=== PATIENT | female | born 2000 | race Caucasian/White ===

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

== ENCOUNTER 2021-05-17 11:43 | Emergency (ER) | payer OTHER ==
[2021-05-17] MEDS ORDERED: METOCLOPRAMIDE 5 MG/ML 2 ML VIAL IVP STA (11:55)
[2021-05-17] MEDS ORDERED: SODIUM CHLORIDE 0.9% 1,000 ML IV STA (11:55)
--- NOTE | 2021-05-17 12:21 | ED ---
General Adult HPI - General Chief complaint: Nausea/Vomiting/Diarrhea Stated complaint: 8 Wks Preg/Nausea/Vomiting Time Seen by Provider: 05/17/21 11:54 Source: patient Mode of arrival: wheelchair Limitations: no limitations - History of Present Illness Initial comments: Dictation was produced using [employer] dictation software. please excuse any gram matical, word or spelling errors. Chief Complaint: 20-year-old feel presents to the emergency department for nausea vomiting and poor oral intake History of Present Illness: Patient is an 20-year-old female she has no significant past medical history. Patient reports that she is 8 weeks . She is a complaining of nausea vomiting and poor appetite for the last several days. She saw her primary care doctor who prescribed her with Zofran. Patient has not established care with retail experience specialist yet. She is taking prenatals and antinausea medications currently. Patient is scheduled for an ultrasound in 3 days for her initial ultrasound per she does not have point with OB until she is 15 weeks. She does report some mild intermittent cramping to the pelvic area. She does not have any cramping or pelvic complaints at this time. The ROS documented in this emergency department record has been reviewed and confirmed by me. Those systems with pertinent positive or negative responses have been documented in the HPI. All other systems are other negative and/or noncontributory. PHYSICAL EXAM: General Impression: Alert and oriented x3, not in acute distress HEENT: Normocephalic atraumatic, extra-ocular movements intact, pupils equal and reactive to light bilaterally, dry mucous membranes. Cardiovascular: Heart regular rate and rhythm Chest: Able to complete full sentences, no retractions, no tachypnea Abdomen: abdomen soft, non-tender, non-distended, no organomegaly Musculoskeletal: Pulses present and equal in all extremities, no peripheral edema Motor: no focal deficits noted Neurological: CN II-XII grossly intact, no focal motor or sensory deficits noted Skin: Intact with no visualized rashes Psych: Normal affect and mood ED course: 20-year-old female presents with nausea and vomiting in . Vital signs upon arrival are within acceptable limits. Laboratory evaluation obtained. CBC, metabolic panel is unremarkable. Urinalysis is negative. Patient does not have any objective evidence of dehydration. OB ultrasound was obtained showing single live intrauterine measuring 6 weeks 3 days. 2:13 PM patient reevaluated bedside found to be significant improved. She has no complaints at this time. Patient is agreeable to discharge. Return precautions discussed. Given prescription for by mouth Reglan. - Related Data Home Medications Medication Instructions Recorded Confirmed Ondansetron HCl [Zofran] 4 mg PO Q8H PRN 05/17/21 05/17/21 Zwl-Rjvd-Yffni Acid 1 cap PO DAILY 05/17/21 05/17/21 [-U Capsule (formulary)] Previous Rx's Medication Instructions Recorded Metoclopramide [Reglan] 10 mg PO TID PRN #20 tab 05/17/21 Allergies Allergy/AdvReac Type Severity Reaction Status Date / Time No Known Allergies Allergy Verified 05/17/21 14:01 Review of Systems ROS Statement: Those systems with pertinent positive or pertinent negative responses have been documented in the HPI. ROS Other: All systems not noted in ROS Statement are negative. Past Medical History Past Medical History: No Reported History History of Any Multi-Drug Resistant Organisms: None Reported Past Surgical History: No Surgical Hx Reported Past Psychological History: No Psychological Hx Reported Smoking Status: Former smoker Past Alcohol Use History: None Reported Past Drug Use History: None Reported General Exam Limitations: no limitations Course Vital Signs 05/17/21 14:08 Temperature 98.9 F Pulse Rate 64 Respiratory 18 Rate Blood Pressure 104/80 O2 Sat by Pulse 100 Oximetry Medical Decision Making - Lab Data Result diagrams: 05/17/21 12:11 05/17/21 12:11 Lab Results 05/17/21 05/17/21 05/17/21 Range/Units 12:11 12:11 12:21 WBC 7.2 (4.0-11.0) k/uL RBC 4.57 (3.80-5.40) m/uL Hgb 14.5 (11.4-16.0) gm/dL Hct 44.1 (34.0-46.0) % MCV 96.4 (80.0-100.0) fL MCH 31.8 (25.0-35.0) pg MCHC 33.0 (31.0-37.0) g/dL RDW 11.5 (11.5-15.5) % Plt Count 259 (150-450) k/uL MPV 7.3 Neutrophils % 68 % Lymphocytes % 26 % Monocytes % 4 % Eosinophils % 1 % Basophils % 0 % Neutrophils # 4.9 (1.3-7.7) k/uL Lymphocytes # 1.9 (1.0-4.8) k/uL Monocytes # 0.3 (0-1.0) k/uL Eosinophils # 0.0 (0-0.7) k/uL Basophils # 0.0 (0-0.2) k/uL Sodium 138 (137-145) mmol/L Potassium 4.1 (3.5-5.1) mmol/L Chloride 105 (98-107) mmol/L Carbon Dioxide 25 (22-30) mmol/L Anion Gap 8 mmol/L BUN 12 (7-17) mg/dL Creatinine 0.54 (0.52-1.04) mg/dL Est GFR (CKD-EPI)AfAm >90 (>60 ml/min/1.73 sqM) Est GFR (CKD-EPI)NonAf >90 (>60 ml/min/1.73 sqM) Glucose 85 (74-99) mg/dL Calcium 9.5 (8.4-10.2) mg/dL Magnesium 1.9 (1.6-2.3) mg/dL Urine Color Yellow Urine Appearance Cloudy H (Clear) Urine pH 7.0 (5.0-8.0) Ur Specific [place] 1.014 (1.001-1.035) Urine Protein Negative (Negative) Urine Glucose (UA) Negative (Negative) Urine Ketones Negative (Negative) Urine Blood Negative (Negative) Urine Nitrite Negative (Negative) Urine Bilirubin Negative (Negative) Urine Urobilinogen <2.0 (<2.0) mg/dL Ur Leukocyte Esterase Trace H (Negative) Urine RBC 1 (0-5) /hpf Urine WBC 1 (0-5) /hpf Ur Squamous Epith Cells 8 H (0-4) /hpf Urine Bacteria Rare H (None) /hpf Hyaline Casts 1 (0-2) /lpf Disposition Clinical Impression: Nausea/vomiting in Disposition: HOME SELF-CARE Condition: Good Instructions (If sedation given, give patient instructions): Acute Nausea and Vomiting (ED) Prescriptions: Metoclopramide [Reglan] 10 mg PO TID PRN #20 tab PRN Reason: Nausea Is patient prescribed a controlled substance at d/c from ED?: No Referrals: Nonstaff,Physician [REFERRING] - 1-2 days
[2021-05-17 12:25] LABS: Basophils % (A) 0 %; Eosinophils % (A) 1 %; HCT 44.1 % (34.0-46.0); HGB 14.5 gm/dL (11.4-16.0); Lymphocytes # (A) 1.9 k/uL (1.0-4.8); Lymphocytes % (A) 26 %; MCH 31.8 pg (25.0-35.0); MCV 96.4 fL (80.0-100.0); Mean Platelet Volume 7.3; Monocytes # (A) 0.3 k/uL (0-1.0); Monocytes % (A) 4 %; Neutrophils # (A) 4.9 k/uL (1.3-7.7); Neutrophils % (A) 68 %; Platelet Count 259 k/uL (150-450); RBC 4.57 m/uL (3.80-5.40); RDW 11.5 % (11.5-15.5); WBC 7.2 k/uL (4.0-11.0)
[2021-05-17 12:46] LABS: African American GFR (CKD) >90 (>60 ml/min/1.73 sqM); Anion Gap 8 mmol/L; Blood Urea Nitrogen 12 mg/dL (7-17); Calcium 9.5 mg/dL (8.4-10.2); Carbon Dioxide 25 mmol/L (22-30); Chloride 105 mmol/L (98-107); Glucose 85 mg/dL (74-99); Magnesium 1.9 mg/dL (1.6-2.3); Non-African American GFR(CKD) >90 (>60 ml/min/1.73 sqM); Potassium 4.1 mmol/L (3.5-5.1); Sodium 138 mmol/L (137-145)
[2021-05-17 12:52] LABS: Appearance,Urine Cloudy (Clear); Bacteria,Urine Rare /hpf; Bilirubin,Urine Negative (Negative); Blood,Urine Negative (Negative); Color,Urine Yellow; Glucose,Urine (UA) Negative (Negative); Hyaline Casts,Urine 1 /lpf (0-2); Ketones,Urine Negative (Negative); Leukocyte Esterase,Urine Trace (Negative); Nitrite,Urine Negative (Negative); Protein,Urine Negative (Negative); RBC,Urine 1 /hpf (0-5); Specific Gravity,Urine 1.014 (1.001-1.035); Squamous Epithelial Cell,Urine 8 /hpf (0-4); Urobilinogen,Urine <2.0 mg/dL (<2.0); WBC,Urine 1 /hpf (0-5)
--- NOTE | 2021-05-17 13:59 | US ---
EXAMINATION TYPE: Transabdominal DATE OF EXAM: 05/17/2021 1:40 PM COMPARISON: NONE CLINICAL HISTORY: pelvic pain. Nausea and vomiting. EXAM PERFORMED: Transvaginal (TV) and Transabdominal (TA) EXAM MEASUREMENTS: GESTATIONAL AGE / DATING Physician Established: Not yet established Dates by LMP: (7 weeks/2 days) EDC: 01/01/2022 Dates by First Scan: No previous this is first scan Dates by Current Scan for: ( 6 weeks/3 days) EDC: 01/07/2022 MATERNAL ANATOMY Uterus: 11.7 x 5.4 x 6.3 cm Right Ovary: 2.8 x 1.8 x 1.6 cm Left Ovary: 3.4 x 2.0 x 1.9 cm Post CDS / Adnexa: wnl Presence of free fluid: no Presence of corpus luteal cyst: no Presence of subchorionic bleed: no GESTATION / SURVEY CRL: 0.61 cm (6 weeks/3 days) Yolk Sac (normal less than 6mm): 2 mm Heart Rate: 143 bpm Rhythm: Normal IUP: Viable IUP Beta HcG (if available): Not available at this time IMPRESSION: Single live intrauterine measuring 6 weeks and 3 days gestational age by sonographic criter ia.
[2021-05-17 14:08] VITALS: BP 104/80; PULSE 64; RESP 18; TEMP 98.9
== END 2021-05-17 14:22 | disposition home or self-care (01) ==
LOC: EC 11:43
DX: O21.9 Vomiting of pregnancy, unspecified (principal); Z3A.08 8 weeks gestation of pregnancy
CPT/HCPCS: 36415; 76801; 76817; 80048; 81001; 83735; 85025; 96361; 96374; 99284

== ENCOUNTER 2021-05-18 11:31 | Emergency (ER) | payer OTHER ==
[2021-05-18 11:36] VITALS: TEMP 98
[2021-05-18] MEDS ORDERED: FAMOTIDINE 20 MG/2 ML VIAL IV STA (12:27)
[2021-05-18] MEDS ORDERED: DEXTROSE 5%-0.9% NACL 1,000 ML IV SCH (12:30)
[2021-05-18] MEDS ORDERED: ONDANSETRON 4 MG/2 ML VIAL IVP STA (12:33)
[2021-05-18 13:06] LABS: Basophils % (A) 1 %; Eosinophils % (A) 1 %; HCT 38.5 % (34.0-46.0); HGB 13.1 gm/dL (11.4-16.0); Lymphocytes # (A) 1.9 k/uL (1.0-4.8); Lymphocytes % (A) 27 %; MCH 32.7 pg (25.0-35.0); MCV 96.2 fL (80.0-100.0); Mean Platelet Volume 7.3; Monocytes # (A) 0.3 k/uL (0-1.0); Monocytes % (A) 4 %; Neutrophils # (A) 4.6 k/uL (1.3-7.7); Neutrophils % (A) 67 %; Platelet Count 198 k/uL (150-450); RDW 11.6 % (11.5-15.5); WBC 6.9 k/uL (4.0-11.0)
[2021-05-18 13:14] LABS: ALT 24 U/L (4-34); AST 24 U/L (14-36); African American GFR (CKD) >90 (>60 ml/min/1.73 sqM); Albumin 3.9 g/dL (3.5-5.0); Alkaline Phosphatase 69 U/L (38-126); Anion Gap 6 mmol/L; Blood Urea Nitrogen 12 mg/dL (7-17); Carbon Dioxide 25 mmol/L (22-30); Chloride 106 mmol/L (98-107); Glucose 79 mg/dL (74-99); Magnesium 1.8 mg/dL (1.6-2.3); Non-African American GFR(CKD) >90 (>60 ml/min/1.73 sqM); Sodium 137 mmol/L (137-145); Total Bilirubin 0.2 mg/dL (0.2-1.3); Total Protein 6.5 g/dL (6.3-8.2)
[2021-05-18 13:23] LABS: Amorphous Sediment,Urine Rare /hpf; Appearance,Urine Cloudy (Clear); Bacteria,Urine Rare /hpf; Bilirubin,Urine Negative (Negative); Blood,Urine Negative (Negative); Color,Urine Yellow; Glucose,Urine (UA) Negative (Negative); Ketones,Urine Negative (Negative); Leukocyte Esterase,Urine Trace (Negative); Nitrite,Urine Negative (Negative); PH, Urine 7.5 (5.0-8.0); Protein,Urine Negative (Negative); RBC,Urine 1 /hpf (0-5); Squamous Epithelial Cell,Urine 8 /hpf (0-4); Urobilinogen,Urine <2.0 mg/dL (<2.0); WBC,Urine 3 /hpf (0-5)
[2021-05-18 13:55] LABS: HCG,Quantitative Serum 68149.3 mIU/mL
--- NOTE | 2021-05-18 15:46 | ED ---
General Adult HPI - General Chief complaint: Nausea/Vomiting/Diarrhea Stated complaint: Vomiting Time Seen by Provider: 05/18/21 12:15 Source: patient, RN notes reviewed, old records reviewed Mode of arrival: ambulatory Limitations: no limitations - History of Present Illness Initial comments: Patient is a 20-year-old female with past medical history remarkable for current of about 6 weeks who presents emergency Department complaining of marisol sea and vomiting . Patient was previously evaluated and showed a definitive IUP at approximate 6 weeks in gestation. She states that she has been unable to follow up with MINE ENGINEERING SUPERVISOR yet. She has had persistent nonbilious nonbloody emesis over the last 2 days with nausea. She has not been tolerant revealing tape. She denies any chest pain, shortness breath. He endorses some mild epigastric abdominal pain that is worse with emesis. Denies any dysuria, hematuria. She denies any headaches, fevers, chills. She has no sick contacts. She has any vaginal discharge or bleeding. She has no other acute complaints at this time. Patient presents for her nausea and vomiting . - Related Data Home Medications Medication Instructions Recorded Confirmed Zym-Zplh-Opieu Acid 1 cap PO DAILY 05/17/21 05/18/21 [-U Capsule (formulary)] Previous Rx's Medication Instructions Recorded Metoclopramide [Reglan] 10 mg PO TID PRN #20 tab 05/17/21 Ondansetron Odt [Zofran Odt] 4 mg PO Q8HR PRN #6 tab 05/18/21 Allergies Allergy/AdvReac Type Severity Reaction Status Date / Time No Known Allergies Allergy Verified 05/18/21 13:24 Review of Systems ROS Statement: Those systems with pertinent positive or pertinent negative responses have been documented in the HPI. Review of Systems: CONST: Denies fever EYES: Denies blurry vision ENT: Denies nasal congestion C/V: Denies Chest pain RESP: Denies shortness of breath GI: Endorses mild abdominal pain, nausea, vomiting : Denies dysuria SKIN: Denies rash. MSK: Denies joint pain. NEURO: Denies headache ROS Other: All systems not noted in ROS Statement are negative. Past Medical History Past Medical History: No Reported History History of Any Multi-Drug Resistant Organisms: None Reported Past Surgical History: No Surgical Hx Reported Past Psychological History: No Psychological Hx Reported Smoking Status: Former smoker Past Alcohol Use History: None Reported Past Drug Use History: None Reported General Exam - General Exam Comments Initial Comments: General: Appears in no acute distress. HEAD: Normal with no signs of head trauma. EYES: EOMI. Conjunctiva normal. ENT: Hearing grossly intact, normal oropharynx. Mildly dry mucous membranes. RESPIRATORY: Clear breath sounds bilaterally. No wheezes, rales, or rhonchi. C/V: Regular rate and rhythm. S1 and S2 auscultated, no edema, peripheral pulses 2+ and intact throughout ABD: Abdomen soft, nondistended. She is mildly tender to palpation epigastric region. There is no guarding. There are no peritoneal signs. EXT: Normal range of motion, no obvious deformity SKIN: No rashes or lesions observed on exposed skin. NEURO: Alert and oriented 4. No focal deficits. Limitations: no limitations Course Vital Signs 05/18/21 05/18/21 11:34 15:53 Temperature 98 F Pulse Rate 60 73 Respiratory 18 16 Rate Blood Pressure 124/84 123/79 O2 Sat by Pulse 99 99 Oximetry Medical Decision Making - Medical Decision Making Based on the patient's presentation and physical exam, she appears to be have nausea and vomiting in the setting of . Therefore we will obtain basic laboratory studies. She will be symptomatically treated with D5 normal saline fluid bolus as well as IV famotidine and Zofran. She was in agreement this p azar. Laboratory studies are remarkable for normal electrolytes. Patient's quantitative beta hCG is 68,000. Urinalysis was a contaminated catch, as there are 8 squamous epithelial cells and no nitrites. She has no urinary symptoms at this time. On reevaluation, patient is taught and by mouth intake. She is feeling improved. I do believe it is safer to be discharged home at this time with maki se follow-up with MINE ENGINEERING SUPERVISOR. She was in agreement this plan. I will provide the patient with a prescription for Zofran ODT.. I instructed the patient to follow up with their PCP in the next 3 days. Patient previously has a prescription for Reglan which I advise she does not take if she is taking Zofran. I advised her to take her vitamins as well. She states she already has a prescription for vitamins. Patient has an outpatient MINE ENGINEERING SUPERVISOR who she follows up with.. I explained that the patient should return to the emergency department if they experience any worsening symptoms. Strict return precautions were discussed with the patient. The patient expressed understanding of these instructions. I answered all questions that the patient had. The patient was discharged home in good condition with their prescriptions and follow up information. - Lab Data Result diagrams: 05/18/21 12:51 05/18/21 12:51 Lab Results 05/18/21 05/18/21 05/18/21 Range/Units 12:51 12:51 12:51 WBC 6.9 (4.0-11.0) k/uL RBC 4.00 (3.80-5.40) m/uL Hgb 13.1 (11.4-16.0) gm/dL Hct 38.5 (34.0-46.0) % MCV 96.2 (80.0-100.0) fL MCH 32.7 (25.0-35.0) pg MCHC 34.0 (31.0-37.0) g/dL RDW 11.6 (11.5-15.5) % Plt Count 198 (150-450) k/uL MPV 7.3 Neutrophils % 67 % Lymphocytes % 27 % Monocytes % 4 % Eosinophils % 1 % Basophils % 1 % Neutrophils # 4.6 (1.3-7.7) k/uL Lymphocytes # 1.9 (1.0-4.8) k/uL Monocytes # 0.3 (0-1.0) k/uL Eosinophils # 0.0 (0-0.7) k/uL Basophils # 0.0 (0-0.2) k/uL Sodium 137 (137-145) mmol/L Potassium 4.0 (3.5-5.1) mmol/L Chloride 106 (98-107) mmol/L Carbon Dioxide 25 (22-30) mmol/L Anion Gap 6 mmol/L BUN 12 (7-17) mg/dL Creatinine 0.44 L (0.52-1.04) mg/dL Est GFR (CKD-EPI)AfAm >90 (>60 ml/min/1.73 sqM) Est GFR (CKD-EPI)NonAf >90 (>60 ml/min/1.73 sqM) Glucose 79 (74-99) mg/dL Calcium 9.0 (8.4-10.2) mg/dL Magnesium 1.8 (1.6-2.3) mg/dL Total Bilirubin 0.2 (0.2-1.3) mg/dL AST 24 (14-36) U/L ALT 24 (4-34) U/L Alkaline Phosphatase 69 (38-126) U/L Total Protein 6.5 (6.3-8.2) g/dL Albumin 3.9 (3.5-5.0) g/dL HCG, Quant 42796.3 mIU/mL Urine Color Yellow Urine Appearance Cloudy H (Clear) Urine pH 7.5 (5.0-8.0) Ur Specific [place] 1.020 (1.001-1.035) Urine Protein Negative (Negative) Urine Glucose (UA) Negative (Negative) Urine Ketones Negative (Negative) Urine Blood Negative (Negative) Urine Nitrite Negative (Negative) Urine Bilirubin Negative (Negative) Urine Urobilinogen <2.0 (<2.0) mg/dL Ur Leukocyte Esterase Trace H (Negative) Urine RBC 1 (0-5) /hpf Urine WBC 3 (0-5) /hpf Ur Squamous Epith Cells 8 H (0-4) /hpf Amorphous Sediment Rare H (None) /hpf Urine Bacteria Rare H (None) /hpf Disposition Clinical Impression: Nausea and vomiting during Disposition: HOME SELF-CARE Condition: Good Instructions (If sedation given, give patient instructions): Acute Nausea and Vomiting (ED) Prescriptions: Ondansetron Odt [Zofran Odt] 4 mg PO Q8HR PRN #6 tab PRN Reason: Nausea Is patient prescribed a controlled substance at d/c from ED?: No Referrals: Emily Stephenson DO [Primary Care Provider] - 1-2 days
[2021-05-18 15:53] VITALS: BP 123/79; PULSE 73; RESP 16
== END 2021-05-18 15:53 | disposition home or self-care (01) ==
LOC: EC 11:31
DX: O21.9 Vomiting of pregnancy, unspecified (principal); Z87.891 Personal history of nicotine dependence; Z3A.01 Less than 8 weeks gestation of pregnancy
CPT/HCPCS: 36415; 80053; 83735; 85025; 81001; 84702; 96374; 96375; 96361 ×2; 99283; J2405

== ENCOUNTER 2021-05-21 12:58 | Emergency (ER) | payer OTHER ==
[2021-05-21 13:04] VITALS: BP 117/79; PULSE 80; RESP 16; TEMP 97.6
[2021-05-21] MEDS ORDERED: ONDANSETRON 4 MG/2 ML VIAL IM STA (15:09)
--- NOTE | 2021-05-21 15:11 | ED ---
Nausea/Vomiting/Diarrhea HPI - General Chief complaint: Nausea/Vomiting/Diarrhea Stated complaint: 6Wks Preg/Vomiting/Syncope Time Seen by Provider: 05/21/21 14:34 Source: patient Mode of arrival: wheelchair Limitations: no limitations - History of Present Illness Initial comments: She is a 20-year-old female presenting to the emergency Department for recheck of her nausea and vomiting. Patient is a proximally 6 weeks . This is her third visit in 4-5 days for the same complaints. She has been given scripts for Zofran and Reglan and states she continues to have nausea throughout the day. She tries he takes medication, sometimes at work sometimes it does not. She states she has an appointment with her PROCESSING TECHNICIAN in 2 days. She is requesting a work note to be off until then. She states her nausea is minimal at this time. She denies any abdominal pain, no vaginal bleeding. She denies any fevers or chills. She denies any dizziness or lightheadedness. She has no further complaints at this time. Her vital signs are stable upon arrival. - Related Data Home Medications Medication Instructions Recorded Confirmed Fay-Rmnd-Dqvqi Acid 1 cap PO DAILY 05/17/21 05/21/21 [-U Capsule (formulary)] Previous Rx's Medication Instructions Recorded Metoclopramide [Reglan] 10 mg PO TID PRN #20 tab 05/17/21 Ondansetron Odt [Zofran Odt] 4 mg PO Q8HR PRN #6 tab 05/18/21 Doxylamine/Pyridoxine HCl (B6) 2 each PO HS #20 tablet. 05/21/21 [Leilani Richmond 10-10 mg Tablet] Allergies Allergy/AdvReac Type Severity Reaction Status Date / Time No Known Allergies Allergy Verified 05/21/21 14:39 Review of Systems ROS Statement: Those systems with pertinent positive or pertinent negative responses have been documented in the HPI. ROS Other: All systems not noted in ROS Statement are negative. Past Medical History Past Medical History: No Reported History History of Any Multi-Drug Resistant Organisms: None Reported Past Surgical History: No Surgical Hx Reported Past Psychological History: No Psychological Hx Reported Smoking Status: Former smoker Past Alcohol Use History: None Reported Past Drug Use History: None Reported General Exam - General Exam Comments Initial Comments: GENERAL: Patient is well-developed and well-nourished. Patient is nontoxic and in no acute distress. HEAD: Atraumatic, normocephalic. EYES: Pupils equal round and reactive to light, extraocular movements intact, sclera anicteric, conjunctiva are normal. Eyelids were unremarkable. ENT: Moist mucous membranes. NECK: Normal range of motion, supple without lymphadenopathy or JVD. LUNGS: Unlabored respirations. Breath sounds clear to auscultation bilaterally and equal. No wheezes rales or rhonchi. HEART: Regular rate and rhythm without murmurs, rubs or gallops. ABDOMEN: Soft, nontender, normoactive bowel sounds. No guarding, no rebound. No masses appreciated. : Deferred MUSCULOSKELETAL: Normal extremities with adequate strength and normal range of motion, no pitting or edema. No clubbing or cyanosis. NEUROLOGICAL: Patient is alert and oriented x 3. SKIN: Warm, Dry, normal turgor, no rashes or lesions noted. Limitations: no limitations Course Vital Signs 05/21/21 13:02 Temperature 97.6 F Pulse Rate 80 Respiratory 16 Rate Blood Pressure 117/79 O2 Sat by Pulse 100 Oximetry Medical Decision Making - Medical Decision Making Patient is a 20-year-old female presenting for a recheck of her nausea and vomiting. She is currently 6 weeks . This is patient's third visit in 4 days for same complaint. She has prescriptions for Zofran and Reglan states they don't always work. At this time her nausea is minimal, no abdominal pain, no vaginal bleeding. She did have an ultrasound 3 days ago which revealed a single live IUP, no further complications. Patient does have an appointment with her PROCESSING TECHNICIAN in 2 days. She is requesting a work note to be off of work until then. I will give her a prescription for Diclegis to try. We'll also give her a shot of Zofran here today. Patient is stable for discharge. Patient is in agreement with this plan of care. Return parameters were discussed with the patient and they verbalized understanding. Case discussed with Dr. Gibbons. Disposition Clinical Impression: Nausea/vomiting in Disposition: HOME SELF-CARE Condition: Stable Instructions (If sedation given, give patient instructions): Nausea and Vomiting in (ED) Additional Instructions: Please return to the Emergency Department if symptoms worsen or any other concerns. Trial of Diclegis for nausea and vomiting. Work note given. Follow-up with your PROCESSING TECHNICIAN as discussed. Prescriptions: Doxylamine/Pyridoxine HCl (B6) [Leilani Richmond 10-10 mg Tablet] 2 each PO HS #20 tablet. Is patient prescribed a controlled substance at d/c from ED?: No Referrals: Emily Stephenson DO [Primary Care Provider] - 1-2 days Time of Disposition: 15:11
== END 2021-05-21 15:37 | disposition home or self-care (01) ==
LOC: EC 12:58
DX: O21.9 Vomiting of pregnancy, unspecified (principal); Z87.891 Personal history of nicotine dependence; Z3A.01 Less than 8 weeks gestation of pregnancy
CPT/HCPCS: 96372; 99284; J2405

== ENCOUNTER 2021-06-28 05:45 | Emergency (ER) | payer OTHER ==
[2021-06-28 05:53] VITALS: TEMP 98.5
[2021-06-28] MEDS ORDERED: MORPHINE SULFATE 4 MG/ML SYRINGE IV STA (06:00)
[2021-06-28] MEDS ORDERED: SODIUM CHLORIDE 0.9% 1,000 ML IV STA (06:00)
[2021-06-28] MEDS ORDERED: ONDANSETRON 4 MG/2 ML VIAL IVP STA (06:11)
[2021-06-28 06:29] LABS: Basophils % (A) 1 %; Eosinophils % (A) 1 %; HCT 38.8 % (34.0-46.0); HGB 13.8 gm/dL (11.4-16.0); Lymphocytes # (A) 0.8 k/uL (1.0-4.8); Lymphocytes % (A) 17 %; MCHC 35.5 g/dL (31.0-37.0); MCV 95.8 fL (80.0-100.0); Mean Platelet Volume 7.1; Monocytes # (A) 0.2 k/uL (0-1.0); Monocytes % (A) 4 %; Neutrophils # (A) 3.5 k/uL (1.3-7.7); Neutrophils % (A) 77 %; Platelet Count 172 k/uL (150-450); Poikilocytosis Slight; RBC 4.05 m/uL (3.80-5.40); RDW 13.5 % (11.5-15.5); WBC 4.6 k/uL (4.0-11.0)
[2021-06-28 06:31] LABS: Appearance,Urine Cloudy (Clear); Bacteria,Urine Occasional /hpf; Bilirubin,Urine Negative (Negative); Blood,Urine Negative (Negative); Color,Urine Yellow; Glucose,Urine (UA) Negative (Negative); Ketones,Urine 2+ (Negative); Leukocyte Esterase,Urine Large (Negative); Mucus,Urine Many /hpf; Nitrite,Urine Negative (Negative); PH, Urine 6.5 (5.0-8.0); Protein,Urine Trace (Negative); RBC,Urine 1 /hpf (0-5); Specific Gravity,Urine 1.027 (1.001-1.035); Squamous Epithelial Cell,Urine 27 /hpf (0-4); WBC,Urine 1 /hpf (0-5)
[2021-06-28 06:40] LABS: ALT 15 U/L (4-34); AST 25 U/L (14-36); African American GFR (CKD) >90 (>60 ml/min/1.73 sqM); Albumin 3.9 g/dL (3.5-5.0); Alkaline Phosphatase 67 U/L (38-126); Amylase 66 U/L (30-110); Anion Gap 9 mmol/L; Blood Urea Nitrogen 9 mg/dL (7-17); Calcium 8.9 mg/dL (8.4-10.2); Carbon Dioxide 21 mmol/L (22-30); Chloride 106 mmol/L (98-107); Glucose 80 mg/dL (74-99); Lipase 70 U/L (23-300); Non-African American GFR(CKD) >90 (>60 ml/min/1.73 sqM); Potassium 3.6 mmol/L (3.5-5.1); Sodium 136 mmol/L (137-145); Total Bilirubin 0.3 mg/dL (0.2-1.3); Total Protein 6.7 g/dL (6.3-8.2)
--- NOTE | 2021-06-28 07:33 | ED ---
General Adult HPI - General Chief complaint: Abdominal Pain Stated complaint: ASHISH,Chest Pain/13 wks Time Seen by Provider: 06/28/21 06:00 Source: patient, family, RN notes reviewed Mode of arrival: ambulatory Limitations: no limitations - History of Present Illness Initial comments: 20-year-old female that presents to emergency department complaining of nausea vomiting and some abdominal pain. She notes that she did have hyperemesis gravidarum previous. Sheapproximate 13 weeks . She notes that she woke up this past night with shortness of breath and chest discomfort. She notes that she went to [facility] UTI and elevated d-dimer. She came here because she was afraid to go home. She was otherwise a well-appearing 20-year-old female in no apparent distress or pain while laying in bed during the exam interview. She notes that she has not had any, case is with her as of yet. 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 She denied any chest pain shortness of breath headache diarrhea constipation fever fatigue while lying in bed. - Related Data Home Medications Medication Instructions Recorded Confirmed [id number] Acid 1 cap PO DAILY 05/17/21 05/21/21 [-U Capsule (formulary)] Previous Rx's Medication Instructions Recorded Metoclopramide [Reglan] 10 mg PO TID PRN #20 tab 05/17/21 Ondansetron Odt [Zofran Odt] 4 mg PO Q8HR PRN #6 tab 05/18/21 Doxylamine/Pyridoxine HCl (B6) 2 each PO HS #20 tablet. 05/21/21 [Leilani Richmond 10-10 mg Tablet] Allergies Allergy/AdvReac Type Severity Reaction Status Date / Time No Known Allergies Allergy Verified 06/28/21 05:53 Review of Systems ROS Statement: Those systems with pertinent positive or pertinent negative responses have been documented in the HPI. ROS Other: All systems not noted in ROS Statement are negative. Past Medical History Past Medical History: No Reported History History of Any Multi-Drug Resistant Organisms: None Reported Past Surgical History: No Surgical Hx Reported Past Psychological History: No Psychological Hx Reported Smoking Status: Former smoker Past Alcohol Use History: None Reported Past Drug Use History: None Reported General Exam Limitations: no limitations General appearance: alert, in no apparent distress Head exam: Present: atraumatic, normocephalic, normal inspection Eye exam: Present: normal appearance, PERRL, EOMI. Absent: scleral icterus, conjunctival injection, periorbital swelling Neck exam: Present: normal inspection Respiratory exam: Present: normal lung sounds bilaterally. Absent: respiratory distress, wheezes, rales, rhonchi, stridor Cardiovascular Exam: Present: regular rate, normal rhythm, normal heart sounds. Absent: systolic murmur, diastolic murmur, rubs, gallop, clicks GI/Abdominal exam: Present: soft, normal bowel sounds. Absent: distended, tenderness, guarding, rebound, rigid Extremities exam: Present: normal inspection, full ROM, normal capillary refill. Absent: tenderness, pedal edema, joint swelling, calf tenderness Neurological exam: Present: alert, oriented X3 Psychiatric exam: Present: normal affect, normal mood Skin exam: Present: warm, dry, intact, normal color. Absent: rash Course Vital Signs 06/28/21 05:50 Temperature 98.5 F Pulse Rate 86 Respiratory 18 Rate Blood Pressure 113/75 O2 Sat by Pulse 99 Oximetry EKG Findings - EKG Comments: EKG Findings:: Ventricular rate 60 bpm, RI interval 136 ms, QRS duration 96 ms, QTC 440 ms, PRT axes 46/75/35. Normal sinus rhythm with sinus arrhythmia, normal ECG. Medical Decision Making - Medical Decision Making 20-year-old female is 13 weeks complaining of nausea vomiting and some chest discomfort. Labs, EKG, bilateral lower extremity ultrasound, ultrasound, 1 L normal saline, 4 mg of Zofran ordered. EKG within normal limits. Labs within normal limits. Urinalysis negative for UTI. Case discussed with Dr. Titus, patient can discharge home. - Lab Data Result diagrams: 06/28/21 06:12 06/28/21 06:12 Lab Results 06/28/21 06/28/21 06/28/21 Range/Units 06:05 06:12 06:12 WBC 4.6 (4.0-11.0) k/uL RBC 4.05 (3.80-5.40) m/uL Hgb 13.8 (11.4-16.0) gm/dL Hct 38.8 (34.0-46.0) % MCV 95.8 (80.0-100.0) fL MCH 34.0 (25.0-35.0) pg MCHC 35.5 (31.0-37.0) g/dL RDW 13.5 (11.5-15.5) % Plt Count 172 (150-450) k/uL MPV 7.1 Neutrophils % 77 % Lymphocytes % 17 % Monocytes % 4 % Eosinophils % 1 % Basophils % 1 % Neutrophils # 3.5 (1.3-7.7) k/uL Lymphocytes # 0.8 L (1.0-4.8) k/uL Monocytes # 0.2 (0-1.0) k/uL Eosinophils # 0.0 (0-0.7) k/uL Basophils # 0.0 (0-0.2) k/uL Poikilocytosis Slight Sodium (137-145) mmol/L Potassium (3.5-5.1) mmol/L Chloride (98-107) mmol/L Carbon Dioxide (22-30) mmol/L Anion Gap mmol/L BUN (7-17) mg/dL Creatinine (0.52-1.04) mg/dL Est GFR (CKD-EPI)AfAm (>60 ml/min/1.73 sqM) Est GFR (CKD-EPI)NonAf (>60 ml/min/1.73 sqM) Glucose (74-99) mg/dL Calcium (8.4-10.2) mg/dL Total Bilirubin (0.2-1.3) mg/dL AST (14-36) U/L ALT (4-34) U/L Alkaline Phosphatase (38-126) U/L Total Protein (6.3-8.2) g/dL Albumin (3.5-5.0) g/dL Amylase (30-110) U/L Lipase (23-300) U/L HCG, Quant mIU/mL Urine Color Yellow Urine Appearance Cloudy H (Clear) Urine pH 6.5 (5.0-8.0) Ur Specific [place] 1.027 (1.001-1.035) Urine Protein Trace H (Negative) Urine Glucose (UA) Negative (Negative) Urine Ketones 2+ H (Negative) Urine Blood Negative (Negative) Urine Nitrite Negative (Negative) Urine Bilirubin Negative (Negative) Urine Urobilinogen 2.0 (<2.0) mg/dL Ur Leukocyte Esterase Large H (Negative) Urine RBC 1 (0-5) /hpf Urine WBC 1 (0-5) /hpf Ur Squamous Epith Cells 27 H (0-4) /hpf Urine Bacteria Occasional H (None) /hpf Urine Mucus Many H (None) /hpf Urine HCG, Qual Detected (Not Detectd) Blood Type Blood Type Recheck Bld Type Recheck Status 06/28/21 06/28/21 Range/Units 06:12 06:12 WBC (4.0-11.0) k/uL RBC (3.80-5.40) m/uL Hgb (11.4-16.0) gm/dL Hct (34.0-46.0) % MCV (80.0-100.0) fL MCH (25.0-35.0) pg MCHC (31.0-37.0) g/dL RDW (11.5-15.5) % Plt Count (150-450) k/uL MPV Neutrophils % % Lymphocytes % % Monocytes % % Eosinophils % % Basophils % % Neutrophils # (1.3-7.7) k/uL Lymphocytes # (1.0-4.8) k/uL Monocytes # (0-1.0) k/uL Eosinophils # (0-0.7) k/uL Basophils # (0-0.2) k/uL Poikilocytosis Sodium 136 L (137-145) mmol/L Potassium 3.6 (3.5-5.1) mmol/L Chloride 106 (98-107) mmol/L Carbon Dioxide 21 L (22-30) mmol/L Anion Gap 9 mmol/L BUN 9 (7-17) mg/dL Creatinine 0.47 L (0.52-1.04) mg/dL Est GFR (CKD-EPI)AfAm >90 (>60 ml/min/1.73 sqM) Est GFR (CKD-EPI)NonAf >90 (>60 ml/min/1.73 sqM) Glucose 80 (74-99) mg/dL Calcium 8.9 (8.4-10.2) mg/dL Total Bilirubin 0.3 (0.2-1.3) mg/dL AST 25 (14-36) U/L ALT 15 (4-34) U/L Alkaline Phosphatase 67 (38-126) U/L Total Protein 6.7 (6.3-8.2) g/dL Albumin 3.9 (3.5-5.0) g/dL Amylase 66 (30-110) U/L Lipase 70 (23-300) U/L HCG, Quant 26849.0 mIU/mL Urine Color Urine Appearance (Clear) Urine pH (5.0-8.0) Ur Specific [place] (1.001-1.035) Urine Protein (Negative) Urine Glucose (UA) (Negative) Urine Ketones (Negative) Urine Blood (Negative) Urine Nitrite (Negative) Urine Bilirubin (Negative) Urine Urobilinogen (<2.0) mg/dL Ur Leukocyte Esterase (Negative) Urine RBC (0-5) /hpf Urine WBC (0-5) /hpf Ur Squamous Epith Cells (0-4) /hpf Urine Bacteria (None) /hpf Urine Mucus (None) /hpf Urine HCG, Qual (Not Detectd) Blood Type O Positive Blood Type Recheck No Previous Record Bld Type Recheck Status ABR ONLY - EKG Data -: EKG Interpreted by Me EKG shows normal: sinus rhythm Rate: normal EKG Comments: Ventricular rate 60 bpm, RI interval 136 ms, QRS duration 96 ms, QTC 440 ms, PRT axes 46/75/35. Normal sinus rhythm with sinus arrhythmia, normal ECG. - Radiology Data Radiology results: report reviewed, image reviewed Bilateral lower extremities ultrasound: Negative for DVT. ultrasound: Single intrauterine 12 weeks 6 days gestation heart rate 161 bpm Disposition Clinical Impression: Abdominal pain, Nausea & vomiting Disposition: HOME SELF-CARE Condition: Stable Instructions (If sedation given, give patient instructions): Abdominal Pain (ED) Additional Instructions: Please return to the Emergency Department if symptoms worsen or any other concerns. Follow-up with primary care in 1-2 days. 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 Plan rest, increase fluids. Is patient prescribed a controlled substance at d/c from ED?: No Referrals: Emily Stephenson DO [Primary Care Provider] - 1-2 days Time of Disposition: 08:08
--- NOTE | 2021-06-28 07:57 | US ---
EXAMINATION TYPE: US venous doppler duplex LE BI DATE OF EXAM: 06/28/2021 7:39 AM COMPARISON: NONE CLINICAL HISTORY: pain. No leg pain or swelling. No redness. Chest pain. 13 weeks . SIDE PERFORMED: Bilateral TECHNIQUE: The lower extremity deep venous system is examined utilizing real time linear array sonog donna with graded compression, doppler sonography and color-flow sonography. VESSELS IMAGED: Common Femoral Vein Deep Femoral Vein Greater Saphenous Vein * Femoral Vein Popliteal Vein Small Saphenous Vein * Proximal Calf Veins (* superficial vessels) Right Leg: Negative for DVT Left Leg: Negative for DVT IMPRESSION: 1. Lower extremity ultrasound negative for deep venous thrombosis
--- NOTE | 2021-06-28 07:58 | US ---
EXAMINATION TYPE: Transabdominal DATE OF EXAM: 06/28/2021 7:38 AM COMPARISON: NONE CLINICAL HISTORY: abdominal pain. Chest pain. No bleeding or cramping. EXAM PERFORMED: Transabdominal (TA) EXAM MEASUREMENTS: GESTATIONAL AGE / DATING Physician Established: (13 weeks/2 days) EDC: 01/01/2022 Dates by Current Scan for: (12 weeks/6 days) EDC: 01/04/2022 MATERNAL ANATOMY Uterus: 10.0 x 8.9 x 7.5 cm Right Ovary: Obscured by bowel gas and uterus Left Ovary: Obscured by bowel gas and uterus Post CDS / Adnexa: no free fluid Presence of free fluid: no Presence of corpus luteal cyst: n/a Presence of subchorionic bleed: no GESTATION / SURVEY CRL: 6.4 cm (12 weeks/6 days) MSD: seen, not measured Heart Rate: 161 bpm Rhythm: Normal IUP: Viable IUP Date of LMP: Unknown, G1 Beta HcG (if available): Not available at this time Single live IUP measuring 12 weeks 6 days. IMPRESSION: 1. Single intrauterine gestation at 12 weeks 6 days gestation. Cardiac activity measures 161 bpm.
[2021-06-28 08:13] VITALS: BP 99/57; PULSE 67; RESP 16
== END 2021-06-28 08:36 | disposition home or self-care (01) ==
LOC: EC 05:45
DX: O21.9 Vomiting of pregnancy, unspecified (principal); O26.891 Other specified pregnancy related conditions, first trimester; R10.9 Unspecified abdominal pain; Z3A.13 13 weeks gestation of pregnancy; Z87.891 Personal history of nicotine dependence
CPT/HCPCS: 36415; 93005; 86900; 86901; 80053; 82150; 83690; 85025; 81001; 81025; 84702; 76801; 93970; 99284; 96374; 96361; J2405

== ENCOUNTER 2021-07-09 09:00 | Emergency (ER) | payer OTHER ==
[2021-07-09 09:27] VITALS: TEMP 98.1
[2021-07-09] MEDS ORDERED: ACETAMINOPHEN TAB 325 MG TAB PO STA (09:56)
[2021-07-09 10:35] LABS: Basophils % (A) 0 %; Eosinophils % (A) 0 %; HCT 33.8 % (34.0-46.0); Lymphocytes # (A) 1.5 k/uL (1.0-4.8); Lymphocytes % (A) 21 %; MCH 32.9 pg (25.0-35.0); MCHC 35.3 g/dL (31.0-37.0); MCV 93.2 fL (80.0-100.0); Mean Platelet Volume 6.8; Monocytes # (A) 0.3 k/uL (0-1.0); Monocytes % (A) 4 %; Neutrophils # (A) 5.3 k/uL (1.3-7.7); Neutrophils % (A) 73 %; Platelet Count 215 k/uL (150-450); RBC 3.63 m/uL (3.80-5.40); RDW 11.9 % (11.5-15.5); WBC 7.3 k/uL (4.0-11.0)
--- NOTE | 2021-07-09 10:43 | US ---
EXAMINATION TYPE: US OB >= 14 wk fetus DATE OF EXAM: 07/09/2021 COMPARISON: None CLINICAL HISTORY: bleeding, 15 weeks vaginal bleeding today with cramping TECHNIQUE: Transabdominal (TA) GESTATIONAL AGE / DATING Physician Established: Not yet established Dates by LMP: (14 weeks/6 days) EDC: 01/01/22 Dates by First Scan: ( 14 weeks/3 days) EDC: 01/04/22 Dates by Current Scan: (14 weeks/6 days) EDC: 01/01/22 SURVEY IUP: Single PLACENTA: Posterior PREVIA: Low Lying LILIBETH: too early to accurately measure CERVICAL LENGTH (transabdominal: norm > 3.0cm): 4.5 cm BIOMETRY PRESENTATION: Variable LIE: Transverse with head maternal RT BPD: 2.7 cm 14 weeks / 5 days HC: 10.0 cm 14 weeks / 5 days AC: 8.2 cm 14 weeks / 4 days FL: 1.4 cm 14 weeks / 0 days ESTIMATED WEIGHT IN GRAMS: 95.4 grams ESTIMATED WEIGHT IN LBS/OZ: 0 lbs. 3 oz. WEIGHT PERCENTAGE BASED ON ESTABLISHED DATES: 10.8% HC/AC: 1.22 Normal FL/AC: 16.64 HEART RATE: 153 bpm RHYTHM: Normal IMPRESSION: Single viable intrauterine as noted above.
[2021-07-09 10:54] LABS: INR 0.9 (<1.2); Partial Thromboplastin Time 23.1 sec (22.0-30.0); Prothrombin Time 9.6 sec (9.0-12.0)
[2021-07-09 11:21] LABS: ALT 18 U/L (4-34); AST 26 U/L (14-36); African American GFR (CKD) >90 (>60 ml/min/1.73 sqM); Albumin 3.4 g/dL (3.5-5.0); Alkaline Phosphatase 62 U/L (38-126); Anion Gap 9 mmol/L; Blood Urea Nitrogen 11 mg/dL (7-17); Calcium 8.7 mg/dL (8.4-10.2); Carbon Dioxide 19 mmol/L (22-30); Chloride 108 mmol/L (98-107); Glucose 78 mg/dL (74-99); Non-African American GFR(CKD) >90 (>60 ml/min/1.73 sqM); Potassium 3.9 mmol/L (3.5-5.1); Sodium 136 mmol/L (137-145); Total Bilirubin 0.2 mg/dL (0.2-1.3); Total Protein 6.2 g/dL (6.3-8.2)
[2021-07-09 12:00] VITALS: BP 107/70; PULSE 80; RESP 16
[2021-07-09 12:03] LABS: HCG,Quantitative Serum 19008.4 mIU/mL
[2021-07-09 12:56] LABS: Appearance,Urine Clear (Clear); Bilirubin,Urine Negative (Negative); Blood,Urine Negative (Negative); Color,Urine Light Yellow; Glucose,Urine (UA) Negative (Negative); Ketones,Urine Negative (Negative); Leukocyte Esterase,Urine Negative (Negative); Nitrite,Urine Negative (Negative); PH, Urine 6.5 (5.0-8.0); Protein,Urine Negative (Negative); Specific Gravity,Urine 1.012 (1.001-1.035); Urobilinogen,Urine <2.0 mg/dL (<2.0)
--- NOTE | 2021-07-09 13:07 | ED ---
Female Urogenital HPI - General Chief complaint: Vaginal Bleeding Stated complaint: 15 wks poss miscarriage Source: patient Mode of arrival: ambulatory Limitations: no limitations - History of Present Illness Initial comments: 20-year-old female who is approximately 15 weeks presents to the emergency department for concern of vaginal bleeding. Patient states that she sees Dr. Manley. She has had a normal ultrasound and laboratory studies thus far the . No report of any vaginal bleeding. Patient states she awoke at 7:00 this morning to some heavy vaginal bleeding. States that she went through a pad and a half an hour. She had some thick dark heavy clots. Denies any abdominal trauma. Admits that her last intercourse was on Friday. Unsure of her blood type. Denies any vaginal discharge. No fevers or chills. Denies any lightheadedness. She has had some lower abdominal cramping for which she took 1 Tylenol at home. No nausea or vomiting. No urinary complaints include dysuria, hematuria or [place] voiding. Denies diarrhea, constipation, melanic stools or hematochezia. No other alleviating, potassium mopping factors - Related Data Home Medications Medication Instructions Recorded Confirmed [id number] Acid 1 cap PO DAILY 05/17/21 07/09/21 [-U Capsule (formulary)] Acetaminophen Tab [Tylenol Tab] 500 mg PO Q6H PRN 07/09/21 07/09/21 Previous Rx's Medication Instructions Recorded Metoclopramide [Reglan] 10 mg PO TID PRN #20 tab 05/17/21 Ondansetron Odt [Zofran Odt] 4 mg PO Q8HR PRN #6 tab 05/18/21 Allergies Allergy/AdvReac Type Severity Reaction Status Date / Time No Known Allergies Allergy Verified 07/09/21 12:12 Review of Systems ROS Statement: Those systems with pertinent positive or pertinent negative responses have been documented in the HPI. ROS Other: All systems not noted in ROS Statement are negative. Past Medical History Past Medical History: No Reported History Additional Past Medical History / Comment(s): nausea History of Any Multi-Drug Resistant Organisms: None Reported Past Surgical History: No Surgical Hx Reported Past Psychological History: No Psychological Hx Reported Smoking Status: Former smoker Past Alcohol Use History: None Reported Past Drug Use History: None Reported General Exam Limitations: no limitations Course Vital Signs 07/09/21 07/09/21 09:24 12:00 Temperature 98.1 F Pulse Rate 63 80 Respiratory 18 16 Rate Blood Pressure 125/89 107/70 O2 Sat by Pulse 100 100 Oximetry - Reevaluation(s) Reevaluation #1: Spoke with Dr. Manley regarding patients condition 07/09/21 1571 Medical Decision Making - Medical Decision Making Upon arrival patient is placed in room 16. There are history and physical exam is performed. IV is established laboratory studies were conducted. Patient provided a urine sample. Ultrasound is performed. Review the laboratory urvashi dies demonstrated a hemoglobin of 12. Urinalysis is clean. Ultrasound is performed which demonstrates a normal intrauterine with an estimated dating of 14 weeks 6 days. Heart rate is 153. She does have a low-lying placenta. I did call and speak with Dr. Carrillo to see whether she would like me to perform a speculum exam due to low-lying placenta. She does agree to a gentle speculum exam. Speculum exam is performed and demonstrates no signs of any bleeding at this time. I did call and seek with Dr. Carrillo again states that the patient may be discharged home and is to follow-up in the office later this week. The patient has any new or worsening symptoms she should return to the emergency department. Patient's blood type is O+. Patient agreed to this treatment plan and was discharged home in stable condition - Lab Data Result diagrams: 07/09/21 10:10 07/09/21 10:10 Lab Results 07/09/21 07/09/21 07/09/21 Range/Units 10:10 10:10 10:10 WBC 7.3 (4.0-11.0) k/uL RBC 3.63 L (3.80-5.40) m/uL Hgb 12.0 (11.4-16.0) gm/dL Hct 33.8 L (34.0-46.0) % MCV 93.2 (80.0-100.0) fL MCH 32.9 (25.0-35.0) pg MCHC 35.3 (31.0-37.0) g/dL RDW 11.9 (11.5-15.5) % Plt Count 215 (150-450) k/uL MPV 6.8 Neutrophils % 73 % Lymphocytes % 21 % Monocytes % 4 % Eosinophils % 0 % Basophils % 0 % Neutrophils # 5.3 (1.3-7.7) k/uL Lymphocytes # 1.5 (1.0-4.8) k/uL Monocytes # 0.3 (0-1.0) k/uL Eosinophils # 0.0 (0-0.7) k/uL Basophils # 0.0 (0-0.2) k/uL PT 9.6 (9.0-12.0) sec INR 0.9 (<1.2) APTT 23.1 (22.0-30.0) sec Sodium 136 L (137-145) mmol/L Potassium 3.9 (3.5-5.1) mmol/L Chloride 108 H (98-107) mmol/L Carbon Dioxide 19 L (22-30) mmol/L Anion Gap 9 mmol/L BUN 11 (7-17) mg/dL Creatinine 0.44 L (0.52-1.04) mg/dL Est GFR (CKD-EPI)AfAm >90 (>60 ml/min/1.73 sqM) Est GFR (CKD-EPI)NonAf >90 (>60 ml/min/1.73 sqM) Glucose 78 (74-99) mg/dL Calcium 8.7 (8.4-10.2) mg/dL Total Bilirubin 0.2 (0.2-1.3) mg/dL AST 26 (14-36) U/L ALT 18 (4-34) U/L Alkaline Phosphatase 62 (38-126) U/L Total Protein 6.2 L (6.3-8.2) g/dL Albumin 3.4 L (3.5-5.0) g/dL HCG, Quant 23515.4 mIU/mL Urine Color Urine Appearance (Clear) Urine pH (5.0-8.0) Ur Specific [place] (1.001-1.035) Urine Protein (Negative) Urine Glucose (UA) (Negative) Urine Ketones (Negative) Urine Blood (Negative) Urine Nitrite (Negative) Urine Bilirubin (Negative) Urine Urobilinogen (<2.0) mg/dL Ur Leukocyte Esterase (Negative) Blood Type Blood Type Recheck Bld Type Recheck Status Antibody Screen Spec Expiration Date 07/09/21 07/09/21 Range/Units 10:10 12:38 WBC (4.0-11.0) k/uL RBC (3.80-5.40) m/uL Hgb (11.4-16.0) gm/dL Hct (34.0-46.0) % MCV (80.0-100.0) fL MCH (25.0-35.0) pg MCHC (31.0-37.0) g/dL RDW (11.5-15.5) % Plt Count (150-450) k/uL MPV Neutrophils % % Lymphocytes % % Monocytes % % Eosinophils % % Basophils % % Neutrophils # (1.3-7.7) k/uL Lymphocytes # (1.0-4.8) k/uL Monocytes # (0-1.0) k/uL Eosinophils # (0-0.7) k/uL Basophils # (0-0.2) k/uL PT (9.0-12.0) sec INR (<1.2) APTT (22.0-30.0) sec Sodium (137-145) mmol/L Potassium (3.5-5.1) mmol/L Chloride (98-107) mmol/L Carbon Dioxide (22-30) mmol/L Anion Gap mmol/L BUN (7-17) mg/dL Creatinine (0.52-1.04) mg/dL Est GFR (CKD-EPI)AfAm (>60 ml/min/1.73 sqM) Est GFR (CKD-EPI)NonAf (>60 ml/min/1.73 sqM) Glucose (74-99) mg/dL Calcium (8.4-10.2) mg/dL Total Bilirubin (0.2-1.3) mg/dL AST (14-36) U/L ALT (4-34) U/L Alkaline Phosphatase (38-126) U/L Total Protein (6.3-8.2) g/dL Albumin (3.5-5.0) g/dL HCG, Quant mIU/mL Urine Color Light Yellow Urine Appearance Clear (Clear) Urine pH 6.5 (5.0-8.0) Ur Specific [place] 1.012 (1.001-1.035) Urine Protein Negative (Negative) Urine Glucose (UA) Negative (Negative) Urine Ketones Negative (Negative) Urine Blood Negative (Negative) Urine Nitrite Negative (Negative) Urine Bilirubin Negative (Negative) Urine Urobilinogen <2.0 (<2.0) mg/dL Ur Leukocyte Esterase Negative (Negative) Blood Type O Positive Blood Type Recheck O Pos Bld Type Recheck Status No Antibody Screen NEGATIVE Spec Expiration Date 07/12/20212309 Disposition Clinical Impression: Second trimester bleeding Disposition: HOME SELF-CARE Condition: Stable Instructions (If sedation given, give patient instructions): Threatened Miscarriage (ED) Additional Instructions: You must be on pelvic rest - no intercourse, no tampons in the vagina. Follow up with Dr. Manley. Call the office to make an appointment. Return to the ED for any new or worsening symptoms. Is patient prescribed a controlled substance at d/c from ED?: No Referrals: Emily Stephenson DO [Primary Care Provider] - 1-2 days Monica Manley DO [Doctor of Osteopathic Medicine] - 1-2 days Time of Disposition: 13:06
== END 2021-07-09 13:26 | disposition home or self-care (01) ==
LOC: EC 09:00
DX: O20.9 Hemorrhage in early pregnancy, unspecified (principal); Z3A.15 15 weeks gestation of pregnancy
CPT/HCPCS: 36415; 76805; 80053; 81003; 84702; 85025; 85610; 85730; 86850; 86900; 86901; 99284

== ENCOUNTER 2021-07-30 05:54 | Emergency (ER) | payer OTHER ==
[2021-07-30 06:00] VITALS: TEMP 98
[2021-07-30] MEDS ORDERED: SODIUM CHLORIDE 0.9% 1,000 ML IV STA (06:53)
[2021-07-30] MEDS ORDERED: FAMOTIDINE 20 MG/2 ML VIAL IV STA (06:54)
--- NOTE | 2021-07-30 06:57 | ED ---
General Adult HPI - General Chief complaint: Chest Pain Stated complaint: chest pain,abd pain 18wks preg Time Seen by Provider: 07/30/21 06:08 Source: patient, RN notes reviewed Mode of arrival: ambulatory - History of Present Illness Initial comments: 20-year-old female with a past medical history of nausea presents to the emergency room for a chief complaint of chest pain. Patient is currently 18 weeks . Patient states for the past 3 or 4 weeks she has been getting a sharp anterior chest pain that comes and goes. States that symptoms last for 5 minutes or so but today at work started again and lasted longer so she became concerned. Patient denies any radiating pain. Denies any pain in the legs.Patient has no other complaints at this time including shortness of breath, chest pain, abdominal pain, nausea or vomiting, headache, or visual changes. - Related Data Home Medications Medication Instructions Recorded Confirmed Wem-Gylt-Hmkat Acid 1 cap PO DAILY 05/17/21 07/30/21 [-U Capsule (formulary)] Acetaminophen Tab [Tylenol Tab] 500 mg PO Q6H PRN 07/09/21 07/30/21 Previous Rx's Medication Instructions Recorded Metoclopramide [Reglan] 10 mg PO TID PRN #20 tab 05/17/21 Ondansetron Odt [Zofran Odt] 4 mg PO Q8HR PRN #6 tab 05/18/21 Allergies Allergy/AdvReac Type Severity Reaction Status Date / Time No Known Allergies Allergy Verified 07/30/21 08:42 Review of Systems ROS Statement: Those systems with pertinent positive or pertinent negative responses have been documented in the HPI. ROS Other: All systems not noted in ROS Statement are negative. Past Medical History Past Medical History: No Reported History Additional Past Medical History / Comment(s): nausea History of Any Multi-Drug Resistant Organisms: None Reported Past Surgical History: No Surgical Hx Reported Past Psychological History: Anxiety, Depression Smoking Status: Former smoker Past Alcohol Use History: None Reported Past Drug Use History: None Reported General Exam General appearance: alert, in no apparent distress Head exam: Present: atraumatic Eye exam: Present: normal appearance, PERRL, EOMI. Absent: scleral icterus, conjunctival injection ENT exam: Present: normal exam, mucous membranes moist Neck exam: Present: normal inspection, full ROM. Absent: tenderness Respiratory exam: Present: normal lung sounds bilaterally. Absent: respiratory distress, wheezes Cardiovascular Exam: Present: regular rate, normal rhythm, normal heart sounds GI/Abdominal exam: Present: soft, normal bowel sounds. Absent: distended, tenderness Neurological exam: Present: alert Course Vital Signs 07/30/21 07/30/21 05:55 08:49 Temperature 98.0 F Pulse Rate 75 58 L Respiratory 19 18 Rate Blood Pressure 114/69 108/66 O2 Sat by Pulse 100 100 Oximetry EKG Findings - EKG Comments: EKG Findings:: Normal sinus rhythm, ventricular rate 72, OH interval 126, QTc 442 Medical Decision Making - Medical Decision Making Vitals are stable. HPI and physical exam as documented. EKG nonischemic. CBC CMP unremarkable. Troponin negative. Urinalysis contaminated, no evidence of acute infection. D-dimer is elevated. Discussed concern for PE given chest pain and increased risk due to . Patient refuses CT at this time. Patient states that he has been going on and if she has worsening pain she will come to the ER for this. She is aware of the risks of PE including and is alert and oriented, able to make medical decisions. Ultrasound did show a single live intrauterine . Complete survey recommended. Chest x-ray unremarkable. At this time patient will be discharged home. She will return here for any worsening symptoms. - Lab Data Result diagrams: 07/30/21 07:04 07/30/21 07:04 Lab Results 07/30/21 07/30/21 07/30/21 Range/Units 07:04 07:04 07:04 WBC 8.9 (4.0-11.0) k/uL RBC 3.78 L (3.80-5.40) m/uL Hgb 12.5 (11.4-16.0) gm/dL Hct 36.4 (34.0-46.0) % MCV 96.2 (80.0-100.0) fL MCH 33.0 (25.0-35.0) pg MCHC 34.3 (31.0-37.0) g/dL RDW 12.8 (11.5-15.5) % Plt Count 221 (150-450) k/uL MPV 7.1 Neutrophils % 74 % Lymphocytes % 21 % Monocytes % 3 % Eosinophils % 1 % Basophils % 0 % Neutrophils # 6.6 (1.3-7.7) k/uL Lymphocytes # 1.9 (1.0-4.8) k/uL Monocytes # 0.3 (0-1.0) k/uL Eosinophils # 0.1 (0-0.7) k/uL Basophils # 0.0 (0-0.2) k/uL PT 9.5 (9.0-12.0) sec INR 0.9 (<1.2) APTT 24.3 (22.0-30.0) sec D-Dimer 2.28 H (<0.60) mg/L FEU Sodium 136 L (137-145) mmol/L Potassium 3.7 (3.5-5.1) mmol/L Chloride 109 H (98-107) mmol/L Carbon Dioxide 20 L (22-30) mmol/L Anion Gap 7 mmol/L BUN 8 (7-17) mg/dL Creatinine 0.45 L (0.52-1.04) mg/dL Est GFR (CKD-EPI)AfAm >90 (>60 ml/min/1.73 sqM) Est GFR (CKD-EPI)NonAf >90 (>60 ml/min/1.73 sqM) Glucose 77 (74-99) mg/dL Calcium 9.0 (8.4-10.2) mg/dL Magnesium 1.7 (1.6-2.3) mg/dL Total Bilirubin 0.2 (0.2-1.3) mg/dL AST 24 (14-36) U/L ALT 14 (4-34) U/L Alkaline Phosphatase 63 (38-126) U/L Troponin I (0.000-0.034) ng/mL Total Protein 6.1 L (6.3-8.2) g/dL Albumin 3.3 L (3.5-5.0) g/dL Lipase 97 (23-300) U/L Urine Color Urine Appearance (Clear) Urine pH (5.0-8.0) Ur Specific [place] (1.001-1.035) Urine Protein (Negative) Urine Glucose (UA) (Negative) Urine Ketones (Negative) Urine Blood (Negative) Urine Nitrite (Negative) Urine Bilirubin (Negative) Urine Urobilinogen (<2.0) mg/dL Ur Leukocyte Esterase (Negative) Urine RBC (0-5) /hpf Urine WBC (0-5) /hpf Ur Squamous Epith Cells (0-4) /hpf Calcium Oxalate Crystal (None) /hpf Urine Bacteria (None) /hpf Urine Mucus (None) /hpf 07/30/21 07/30/21 Range/Units 07:04 07:38 WBC (4.0-11.0) k/uL RBC (3.80-5.40) m/uL Hgb (11.4-16.0) gm/dL Hct (34.0-46.0) % MCV (80.0-100.0) fL MCH (25.0-35.0) pg MCHC (31.0-37.0) g/dL RDW (11.5-15.5) % Plt Count (150-450) k/uL MPV Neutrophils % % Lymphocytes % % Monocytes % % Eosinophils % % Basophils % % Neutrophils # (1.3-7.7) k/uL Lymphocytes # (1.0-4.8) k/uL Monocytes # (0-1.0) k/uL Eosinophils # (0-0.7) k/uL Basophils # (0-0.2) k/uL PT (9.0-12.0) sec INR (<1.2) APTT (22.0-30.0) sec D-Dimer (<0.60) mg/L FEU Sodium (137-145) mmol/L Potassium (3.5-5.1) mmol/L Chloride (98-107) mmol/L Carbon Dioxide (22-30) mmol/L Anion Gap mmol/L BUN (7-17) mg/dL Creatinine (0.52-1.04) mg/dL Est GFR (CKD-EPI)AfAm (>60 ml/min/1.73 sqM) Est GFR (CKD-EPI)NonAf (>60 ml/min/1.73 sqM) Glucose (74-99) mg/dL Calcium (8.4-10.2) mg/dL Magnesium (1.6-2.3) mg/dL Total Bilirubin (0.2-1.3) mg/dL AST (14-36) U/L ALT (4-34) U/L Alkaline Phosphatase (38-126) U/L Troponin I <0.012 (0.000-0.034) ng/mL Total Protein (6.3-8.2) g/dL Albumin (3.5-5.0) g/dL Lipase (23-300) U/L Urine Color Yellow Urine Appearance Cloudy H (Clear) Urine pH 6.5 (5.0-8.0) Ur Specific [place] 1.024 (1.001-1.035) Urine Protein Negative (Negative) Urine Glucose (UA) Negative (Negative) Urine Ketones Trace H (Negative) Urine Blood Negative (Negative) Urine Nitrite Negative (Negative) Urine Bilirubin Negative (Negative) Urine Urobilinogen <2.0 (<2.0) mg/dL Ur Leukocyte Esterase Moderate H (Negative) Urine RBC 1 (0-5) /hpf Urine WBC 1 (0-5) /hpf Ur Squamous Epith Cells 22 H (0-4) /hpf Calcium Oxalate Crystal Occasional H (None) /hpf Urine Bacteria Rare H (None) /hpf Urine Mucus Few H (None) /hpf Disposition Clinical Impression: Atypical chest pain Disposition: HOME SELF-CARE Condition: Good Instructions (If sedation given, give patient instructions): Chest Pain (ED) Additional Instructions: Please follow up with obgyn. Return to the ER for any worsening symptoms. Is patient prescribed a controlled substance at d/c from ED?: No Referrals: Emily Stephenson DO [Primary Care Provider] - 1-2 days Time of Disposition: 09:18
[2021-07-30 07:19] LABS: Basophils % (A) 0 %; Eosinophils # (A) 0.1 k/uL (0-0.7); Eosinophils % (A) 1 %; HCT 36.4 % (34.0-46.0); HGB 12.5 gm/dL (11.4-16.0); Lymphocytes # (A) 1.9 k/uL (1.0-4.8); Lymphocytes % (A) 21 %; MCHC 34.3 g/dL (31.0-37.0); MCV 96.2 fL (80.0-100.0); Mean Platelet Volume 7.1; Monocytes # (A) 0.3 k/uL (0-1.0); Monocytes % (A) 3 %; Neutrophils # (A) 6.6 k/uL (1.3-7.7); Neutrophils % (A) 74 %; Platelet Count 221 k/uL (150-450); RBC 3.78 m/uL (3.80-5.40); RDW 12.8 % (11.5-15.5); WBC 8.9 k/uL (4.0-11.0)
[2021-07-30 07:43] LABS: ALT 14 U/L (4-34); AST 24 U/L (14-36); African American GFR (CKD) >90 (>60 ml/min/1.73 sqM); Albumin 3.3 g/dL (3.5-5.0); Alkaline Phosphatase 63 U/L (38-126); Anion Gap 7 mmol/L; Blood Urea Nitrogen 8 mg/dL (7-17); Carbon Dioxide 20 mmol/L (22-30); Chloride 109 mmol/L (98-107); Glucose 77 mg/dL (74-99); Lipase 97 U/L (23-300); Magnesium 1.7 mg/dL (1.6-2.3); Non-African American GFR(CKD) >90 (>60 ml/min/1.73 sqM); Potassium 3.7 mmol/L (3.5-5.1); Sodium 136 mmol/L (137-145); Total Bilirubin 0.2 mg/dL (0.2-1.3); Total Protein 6.1 g/dL (6.3-8.2)
--- NOTE | 2021-07-30 07:48 | XR ---
EXAMINATION TYPE: XR chest 2V DATE OF EXAM: 07/30/2021 COMPARISON: 11/24/2019 HISTORY: 20-year-old female with chest pain TECHNIQUE: PA and lateral views FINDINGS: The cardiomediastinal silhouette, aorta, and pulmonary vasculature are within normal limits. Lungs an d pleural spaces are clear. IMPRESSION: No acute cardiopulmonary process.
[2021-07-30 08:10] LABS: Appearance,Urine Cloudy (Clear); Bacteria,Urine Rare /hpf; Bilirubin,Urine Negative (Negative); Blood,Urine Negative (Negative); Calcium Oxalate Crystals,Urine Occasional /hpf; Color,Urine Yellow; Glucose,Urine (UA) Negative (Negative); Ketones,Urine Trace (Negative); Leukocyte Esterase,Urine Moderate (Negative); Mucus,Urine Few /hpf; Nitrite,Urine Negative (Negative); PH, Urine 6.5 (5.0-8.0); Protein,Urine Negative (Negative); RBC,Urine 1 /hpf (0-5); Specific Gravity,Urine 1.024 (1.001-1.035); Squamous Epithelial Cell,Urine 22 /hpf (0-4); Urobilinogen,Urine <2.0 mg/dL (<2.0); WBC,Urine 1 /hpf (0-5)
[2021-07-30 08:12] LABS: INR 0.9 (<1.2); Partial Thromboplastin Time 24.3 sec (22.0-30.0); Prothrombin Time 9.5 sec (9.0-12.0)
[2021-07-30 08:50] VITALS: BP 108/66; PULSE 58; RESP 18
--- NOTE | 2021-07-30 09:16 | US ---
EXAMINATION TYPE: US OB >= 14 wk fetus DATE OF EXAM: 07/30/2021 COMPARISON: None CLINICAL HISTORY: 20-year-old female pain. Chest and pelvic pain for 3 hours, no injury, no bleeding TECHNIQUE: OBTA GESTATIONAL AGE / DATING Physician Established: (17 weeks/6 days) EDC: 01/01/2022 Dates by LMP: (17 weeks/3 days) EDC: 01/04/2022 Dates by First Scan: (17 weeks/6 days) EDC: 01/01/2022 Dates by Current Scan: (17 weeks/4 days) EDC: 01/03/2022 SURVEY IUP: Single PLACENTA: Posterior PREVIA: No Previa ILLIBETH: 14.9 cm Normal CERVICAL LENGTH (transabdominal: norm > 3.0cm): 3.2 cm BIOMETRY PRESENTATION: Vertex LIE: Longitudinal BPD: 3.9 cm 18 weeks / 0 days HC: 14.5 cm 17 weeks / 5 days AC: 11.3 cm 17 weeks / 1 days FL: 2.4 cm 17 weeks / 2 days ESTIMATED WEIGHT IN GRAMS: 186 grams ESTIMATED WEIGHT IN LBS/OZ: 0 lbs. 7 oz. WEIGHT PERCENTAGE BASED ON ESTABLISHED DATES: 14% HC/AC: 1.27 Normal FL/AC: 21 Normal HEART RATE: 152 bpm RHYTHM: Normal IMPRESSION: 1. Single live intrauterine with established gestational age of 17 weeks 6 days by previous dating scan. Current ultrasound biometry is concordant (17 weeks 4 days). This places the child at t he 14th percentile for weight. Additional follow-up as clinically indicated. 2. Otherwise, complete survey recommended at 18-20 weeks.
== END 2021-07-30 09:36 | disposition home or self-care (01) ==
LOC: EC 05:54
DX: O26.892 Other specified pregnancy related conditions, second trimester (principal); R07.89 Other chest pain; Z87.891 Personal history of nicotine dependence; Z3A.18 18 weeks gestation of pregnancy
CPT/HCPCS: 36415; 71046; 76805; 80053; 81001; 83690; 83735; 84484; 85025; 85379; 85610; 85730; 93005; 96361; 96374; 99285

== ENCOUNTER 2021-10-30 10:36 | Outpatient (CLI) | payer OTHER ==
[2021-10-30 12:02] VITALS: BP 125/73; PULSE 87; RESP 16; TEMP 98.7
--- NOTE | 2021-11-16 09:33 | P.MSEPDOC ---
Presenting Problems - Arrival Data Date of Arrival on Unit: 10/30/21 Time of Arrival on Unit: 10:36 Mode of Transport: Ambulatory - Complaint OB-Reason for Admission/Chief Complaint: Decreased Movement Comment: Pt reports to triage c/o decreased movement and increase in hiccups Medical History - Information : 1 Para: 0 - Gestational Age Gestational Age by STAN (wks/days): 31 Weeks and 4 Days Review of Systems - Review of Systems Constitutional: No problems Breast: No problems ENT: No problems Cardiovascular: No problems Respiratory: No problems Gastrointestinal: No problems Genitourinary: No problems Musculoskeletal: No problems Neurological: No problems Skin: No problems Vital Signs - Temperature Temperature: 98.7 F Temperature Source: Axillary - Pulse Right Sitting Brachial Pulse Rate: 87 Pulse Assessment Method: Automatic Cuff - Respirations Respiratory Rate: 16 Oxygen Delivery Method: Room Air O2 Sat by Pulse Oximetry: 98 - Blood Pressure Right Arm Sitting Blood Pressure: 125/73 Blood Pressure Mean: 90 Blood Pressure Source: Automatic Cuff Medical Screen Scoring - Assessment - Baby A Baseline FHR: 150 Heart Rate - NICHD Category: Category I (Normal) NST: Reactive Physician Notification - Physician Notified Physician Notified Date: 10/30/21 Physician Notified Time: 11:40 Physician: Too Jimenez - Notification Comment Comment: Spk c\Dr. Jimenez ([facility] in surgery), advsd pt of Dr. Canales, , 31 01/31,. c/o decreased FM and increase in hiccups. Reactive NST obtained, pt edu on hiccups. and has scheduled appt tomorrow. States to d/c home. Maternal Triage Index - Maternal Triage Index Presenting for scheduled procedure w/no complaint: No - Stat/Priority 1 Stat Priority 1: No - Urgent/Priority 2 Urgent Priority 2: Yes Provider Notified: Too Jimenez Provider Notified Time: 11:40 Criteria Met for Priority 2: Decreased FM Disposition - Disposition OB Disposition: Discharge to home, Written follow up instructions reviewed Discharge Date: 10/30/21 Discharge Time: 11:46 I agree with the RN Medical Screening Exam: Yes Case reviewed; plan agreed upon as documented in EMR&OBIX.: Yes Diagnosis: DECREASED MOVEMENTS, THIRD TRIMESTER, FETUS 1
== END 2021-10-30 11:46 | disposition home or self-care (01) ==
LOC: FBPOP 10:36
PROVIDERS: ATTEND Obstetrics & Gynecology Obstetrics
DX: O36.8131 Decreased fetal movements, third trimester, fetus 1 (principal); Z3A.31 31 weeks gestation of pregnancy
CPT/HCPCS: 59025; G0463; 99213

== ENCOUNTER 2021-11-20 14:46 | Outpatient (CLI) | payer OTHER ==
[2021-11-20 15:35] VITALS: BP 109/56; PULSE 80; RESP 18; TEMP 98.3
--- NOTE | 2022-02-06 21:48 | P.MSEPDOC ---
Presenting Problems - Arrival Data Date of Arrival on Unit: 11/20/21 Time of Arrival on Unit: 14:46 Mode of Transport: Ambulatory - Complaint OB-Reason for Admission/Chief Complaint: Decreased Movement Medical History - Information : 1 Para: 0 Term: 0 : 0 Abortions: Spontaneous or Elective: 0 Number of Living Children: 0 - Gestational Age Gestational Age by STAN (wks/days): 34 Weeks and 4 Days Review of Systems - Review of Systems Constitutional: No problems Breast: No problems ENT: No problems Cardiovascular: No problems Respiratory: No problems Gastrointestinal: No problems Genitourinary: No problems Musculoskeletal: No problems Neurological: No problems Skin: No problems Vital Signs - Temperature Temperature: 98.3 F Temperature Source: Temporal Artery Scan - Pulse Brachial Pulse Rate: 80 Pulse Assessment Method: Automatic Cuff - Respirations Respiratory Rate: 18 Oxygen Delivery Method: Room Air O2 Sat by Pulse Oximetry: 98 - Blood Pressure Right Arm Blood Pressure: 109/56 Blood Pressure Mean: 73 Blood Pressure Source: Automatic Cuff Medical Screen Scoring - Cervical Exam Membranes: Intact - Assessment - Baby A Baseline FHR: 125 Heart Rate - NICHD Category: Category I (Normal) NST: Reactive Physician Notification - Physician Notified Physician Notified Date: 11/20/21 Physician Notified Time: 14:25 Physician: Dr Manley New Order Received: Yes - Notification Comment Comment: D/C home with instructions Maternal Triage Index - Maternal Triage Index Presenting for scheduled procedure w/no complaint: No - Stat/Priority 1 Stat Priority 1: No - Urgent/Priority 2 Urgent Priority 2: Yes Provider Notified: Dr Manley Provider Notified Time: 14:25 Criteria Met for Priority 2: Called with reactive NST result Disposition - Disposition OB Disposition: Discharge to home Discharge Date: 11/20/21 Discharge Time: 14:30 I agree with the RN Medical Screening Exam: Yes Case reviewed; plan agreed upon as documented in EMR&OBIX.: Yes Diagnosis: DECREASED MOVEMENTS, THIRD TRIMESTER, FETUS 1
== END 2021-11-20 15:30 | disposition home or self-care (01) ==
LOC: FBPOP 14:46
PROVIDERS: ATTEND Obstetrics & Gynecology Obstetrics
DX: O36.8131 Decreased fetal movements, third trimester, fetus 1 (principal); Z3A.34 34 weeks gestation of pregnancy
CPT/HCPCS: 59025; G0463; 99213

== ENCOUNTER 2021-12-01 11:58 | Outpatient (CLI) | payer OTHER ==
[2021-12-01 13:41] VITALS: BP 120/67; PULSE 67; RESP 16; TEMP 97.4
--- NOTE | 2021-12-02 10:28 | P.MSEPDOC ---
Presenting Problems - Arrival Data Date of Arrival on Unit: 12/01/21 Time of Arrival on Unit: 11:58 Mode of Transport: Ambulatory - Complaint OB-Reason for Admission/Chief Complaint: Other Comment: pt seen at [facility] today c/o cramping and not sure if she had leaking of fluid. pt was told to come her to get further evualated Medical History - Information : 1 Para: 0 Term: 0 : 0 Abortions: Spontaneous or Elective: 0 Number of Living Children: 0 - Gestational Age Gestational Age by STAN (wks/days): 35 Weeks and 4 Days - History Complications: No Care Review of Systems - Review of Systems Constitutional: No problems Breast: No problems ENT: No problems Cardiovascular: No problems Respiratory: No problems Gastrointestinal: No problems Genitourinary: No problems Musculoskeletal: No problems Neurological: No problems Skin: No problems Vital Signs - Temperature Temperature: 97.4 F Temperature Source: Oral - Pulse Right Brachial Pulse Rate: 67 Pulse Assessment Method: Automatic Cuff - Respirations Respiratory Rate: 16 Oxygen Delivery Method: Room Air - Blood Pressure Right Arm Blood Pressure: 120/67 Blood Pressure Mean: 84 Blood Pressure Source: Automatic Cuff Medical Screen Scoring - Cervical Exam Dilation (cm): 0 Effacement (%): 50 Station: -2 Membranes: Intact - Uterine Contractions Intensity: Mild Resting: Soft to palpation - Assessment - Baby A Baseline FHR: 140 Heart Rate - NICHD Category: Category I (Normal) Physician Notification - Physician Notified Physician Notified Date: 12/01/21 Physician Notified Time: 12:20 Physician: dr mesa New Order Received: Yes - Notification Comment Comment: may discharge to home Maternal Triage Index - Non-Urgent/Priority 4 Non-Urgent Priority 4: Yes Criteria Met for Priority 4: 35 4/7 not contractions andnot rumpture Disposition - Disposition OB Disposition: Discharge to home Discharge Date: 12/01/21 Discharge Time: 12:30 I agree with the RN Medical Screening Exam: Yes Physician's MSE Comment: I have neither seen nor examined the patient. Case reviewed; plan agreed upon as documented in EMR&OBIX.: Yes Diagnosis: RELATED CONDITIONS, UNSPECIFIED, THIRD TRIMESTER
== END 2021-12-01 13:35 | disposition home or self-care (01) ==
LOC: FBPOP 11:58
PROVIDERS: ATTEND Obstetrics & Gynecology
DX: O26.893 Other specified pregnancy related conditions, third trimester (principal); R25.2 Cramp and spasm
CPT/HCPCS: 59025; 84112; G0463; 99213

== ENCOUNTER 2021-12-18 19:05 | Outpatient (CLI) | payer OTHER ==
[2021-12-18 21:59] VITALS: BP 122/74; PULSE 90; RESP 17; TEMP 97.5
--- NOTE | 2022-02-06 21:58 | P.MSEPDOC ---
Presenting Problems - Arrival Data Date of Arrival on Unit: 12/18/21 Time of Arrival on Unit: 19:05 Mode of Transport: Ambulatory - Complaint OB-Reason for Admission/Chief Complaint: Possible Onset of Labor Comment: Patient presents to triage with complaints of pelvic pain and contractions that feel irregular. Patient states she has not been timing the contractions but has been having multiple per hour. Medical History - Information : 1 Para: 0 Term: 0 : 0 Abortions: Spontaneous or Elective: 0 Number of Living Children: 0 - Gestational Age Gestational Age by STAN (wks/days): 38 Weeks and 0 Days Review of Systems - Review of Systems Constitutional: No problems Breast: No problems ENT: No problems Cardiovascular: No problems Respiratory: No problems Gastrointestinal: No problems Genitourinary: No problems Musculoskeletal: No problems Neurological: No problems Skin: No problems Vital Signs - Temperature Temperature: 97.5 F Temperature Source: Temporal Artery Scan - Pulse Pulse Oximetery Pulse Rate: 90 Pulse Assessment Method: Pulse Oximetry - Respirations Respiratory Rate: 17 Oxygen Delivery Method: Room Air O2 Sat by Pulse Oximetry: 95 - Blood Pressure Right Arm Blood Pressure: 122/74 Blood Pressure Mean: 90 Blood Pressure Source: Automatic Cuff Medical Screen Scoring - Cervical Exam Dilation (cm): 1 Effacement (%): 50 Station: -2 Membranes: Intact - Uterine Contractions Frequency From (mins): 3 Frequency To (mins): 4 Duration From (seconds): 70 Duration To (seconds): 80 Intensity: Mild Resting: Soft to palpation - Assessment - Baby A Baseline FHR: 140 Heart Rate - NICHD Category: Category I (Normal) NST: Reactive Physician Notification - Physician Notified Physician Notified Date: 12/18/21 Physician Notified Time: 20:25 Physician: Monica Manley New Order Received: Yes - Notification Comment Comment: RN spoke with Dr. Manley regarding patient's c/o pelvic pain/pressure a nd contractions, cervical exam of 1/50/-2 with no change after one hour, category 1 FHT, and patient rating contraction pain 4-5. Orders from Dr. Manley include giving patient oral hydration and rechecking patient in one hour. If patient has not made any change, discharge patient home. Maternal Triage Index - Maternal Triage Index Presenting for scheduled procedure w/no complaint: No - Stat/Priority 1 Stat Priority 1: No - Urgent/Priority 2 Urgent Priority 2: No - Prompt/Priority 3 Prompt Priority 3: No - Non-Urgent/Priority 4 Non-Urgent Priority 4: Yes Criteria Met for Priority 4: Complaints of pelvic pain/pressure and irregular contractions Disposition - Disposition OB Disposition: Discharge to home, Written follow up instructions reviewed Discharge Date: 12/18/21 Discharge Time: 21:32 I agree with the RN Medical Screening Exam: Yes Case reviewed; plan agreed upon as documented in EMR&OBIX.: Yes Diagnosis: FALSE LABOR AT OR AFTER 37 COMPLETED WEEKS OF GESTATION
== END 2021-12-18 21:32 | disposition home or self-care (01) ==
LOC: FBPOP 19:05
PROVIDERS: ATTEND Obstetrics & Gynecology Obstetrics
DX: O47.1 False labor at or after 37 completed weeks of gestation (principal); Z3A.38 38 weeks gestation of pregnancy
CPT/HCPCS: 59025; G0463; 99213

== ENCOUNTER 2021-12-25 13:07 | Outpatient (CLI) | payer OTHER ==
[2021-12-25 14:48] VITALS: BP 124/87; PULSE 92; RESP 16; TEMP 97.9
--- NOTE | 2022-02-06 22:00 | P.MSEPDOC ---
Presenting Problems - Arrival Data Date of Arrival on Unit: 12/25/21 Time of Arrival on Unit: 13:07 Mode of Transport: Ambulatory - Complaint OB-Reason for Admission/Chief Complaint: Possible Onset of Labor Comment: Contrx since 929, q3m per pt report Medical History - Information : 1 Para: 0 - Gestational Age Gestational Age by STAN (wks/days): 39 Weeks and 0 Days Review of Systems - Review of Systems Constitutional: No problems Breast: No problems ENT: No problems Cardiovascular: No problems Respiratory: No problems Gastrointestinal: No problems Genitourinary: No problems Musculoskeletal: No problems Neurological: No problems Skin: No problems Vital Signs - Temperature Temperature: 97.9 F Temperature Source: Temporal Artery Scan - Pulse Left Sitting Brachial Pulse Rate: 92 Pulse Assessment Method: Automatic Cuff - Respirations Respiratory Rate: 16 Oxygen Delivery Method: Room Air O2 Sat by Pulse Oximetry: 97 - Blood Pressure Right Arm Sitting Blood Pressure: 124/87 Blood Pressure Mean: 99 Blood Pressure Source: Automatic Cuff Medical Screen Scoring - Cervical Exam Dilation (cm): 1.5 Effacement (%): 50 Station: -2 Membranes: Intact - Assessment - Baby A Baseline FHR: 145 Heart Rate - NICHD Category: Category I (Normal) NST: Reactive Physician Notification - Physician Notified Physician Notified Date: 12/25/21 Physician Notified Time: 14:10 Physician: Monica Manley New Order Received: Yes - Notification Comment Comment: Spk c\Dr. Manley, advsd of pts arrival to triage, , 39 0/7, c/o contrx since. 929, Cat I EFM, contractions irregular and pt reports no longer feeling at this time. SVE 1.5/50/-2, no change after 1 hr. Orders rec'd to d/c home, follow up for IOL 3/4. Maternal Triage Index - Non-Urgent/Priority 4 Non-Urgent Priority 4: Yes Criteria Met for Priority 4: Contrx 39wk Disposition - Disposition OB Disposition: Discharge to home, Written follow up instructions reviewed Discharge Date: 12/25/21 Discharge Time: 14:25 I agree with the RN Medical Screening Exam: Yes Case reviewed; plan agreed upon as documented in EMR&OBIX.: Yes Diagnosis: FALSE LABOR AT OR AFTER 37 COMPLETED WEEKS OF GESTATION
== END 2021-12-25 14:25 | disposition home or self-care (01) ==
LOC: FBPOP 13:07
PROVIDERS: ATTEND Obstetrics & Gynecology Obstetrics
DX: O47.1 False labor at or after 37 completed weeks of gestation (principal); Z3A.39 39 weeks gestation of pregnancy
CPT/HCPCS: 59025; G0463; 99213

== ENCOUNTER 2021-12-28 05:55 | Inpatient (IN) | payer OTHER ==
[2021-12-28] MEDS ORDERED: CARBOPROST TROMETHAMINE 250 MCG/ML 1 ML AMP IM PRN (06:08)
[2021-12-28] MEDS ORDERED: AMPICILLIN 2,000 MG in SODIUM CHLORIDE 0.9% 100 ML IVPB STA (06:08)
[2021-12-28] MEDS ORDERED: LIDOCAINE 1% (PF) 10 MG/ML (30 ML SDV) SQ PRN (06:08)
[2021-12-28] MEDS ORDERED: TERBUTALINE 1 MG/ML VIAL SQ PRN (06:08)
[2021-12-28] MEDS ORDERED: METHYLERGONOVINE 0.2 MG/ML 1 ML AMP IM PRN (06:08)
[2021-12-28] MEDS ORDERED: OXYTOCIN 10 UNIT/ML 1 ML VIAL IM PRN (06:08)
[2021-12-28] MEDS: OXYTOCIN 30 UNITS/500 ML NS 30 UNIT in SALINE 1 500ML.BAG IV SCH ×2 (06:58→20:59)
[2021-12-28] MEDS: LACTATED RINGERS 1,000 ML IV SCH ×3 (06:58→18:59)
[2021-12-28 07:06] LABS: Basophils # (A) 0.1 k/uL (0-0.2); Basophils % (A) 1 %; Eosinophils # (A) 0.1 k/uL (0-0.7); Eosinophils % (A) 1 %; HCT 37.6 % (34.0-46.0); HGB 12.8 gm/dL (11.4-16.0); Lymphocytes # (A) 2.3 k/uL (1.0-4.8); Lymphocytes % (A) 20 %; MCHC 33.9 g/dL (31.0-37.0); MCV 97.3 fL (80.0-100.0); Mean Platelet Volume 7.3; Monocytes # (A) 0.5 k/uL (0-1.0); Monocytes % (A) 5 %; Neutrophils # (A) 8.4 k/uL (1.3-7.7); Neutrophils % (A) 73 %; Platelet Count 255 k/uL (150-450); RBC 3.87 m/uL (3.80-5.40); RDW 12.3 % (11.5-15.5); WBC 11.5 k/uL (4.0-11.0)
[2021-12-28 07:57] LABS: Amphetamine Screen,Urine Not Detected (NotDetected); Barbiturate Screen,Urine Not Detected (NotDetected); Benzodiazepines Screen,Urine Not Detected (NotDetected); Cocaine Screen,Urine Not Detected (NotDetected); Methadone Screen, Urine Not Detected (NotDetected); Opiate Screen,Urine Not Detected (NotDetected); Oxycodone Screen, Urine Not Detected (NotDetected); Phencyclidine Screen,Urine Not Detected (NotDetected); Tricyclic Antidepressant,Urine Not Detected (NotDetected); Urn Cannabinoid Scrn Not Detected (NotDetected)
--- NOTE | 2021-12-28 09:09 | P.HPOB ---
History of Present Illness H&P Date: 12/28/21 Chief Complaint: IUP @ 39 2/7 weeks This is a 21-year-old at 39-3/7 weeks, estimated due date of 01/01. Patient presents for elective induction of labor. Patient has been seen multiple times through OB triage with complaints of contractions. Patient has had routine pre too care which was complicating the first trimester by hyperemesis gravidarum. Patient has been doing well since. Patient notes good movement and occasional contractions denies loss of fluid. On bloodwork this patient is a blood type of O+, rubella status immune, hepatitis B surface negative, HIV negative, RPR is nonreactive, group beta strep is positive. Review of Systems Constitutional: Denies chills, Denies fatigue, Denies fever Ears, nose, mouth and throat: Denies headache Cardiovascular: Reports leg edema Respiratory: Denies dyspnea Gastrointestinal: Denies constipation, Denies diarrhea, Denies nausea, Denies vomiting Genitourinary: Reports Past Medical History Past Medical History: No Reported History, GERD/Reflux Additional Past Medical History / Comment(s): nausea History of Any Multi-Drug Resistant Organisms: None Reported Past Surgical History: No Surgical Hx Reported Additional Past Surgical History / Comment(s): wisdom teeth, tubes in ears Past Anesthesia/Blood Transfusion Reactions: No Reported Reaction Past Psychological History: Anxiety, Depression Smoking Status: Former smoker Past Alcohol Use History: None Reported Past Drug Use History: Marijuana Additional Drug Use History / Comment(s): Marijuana - Past Family History Mother Family Medical History: No Reported History Father Family Medical History: Hypertension Medications and Allergies Home Medications Medication Instructions Recorded Confirmed Type Rti-Qvne-Mrtyb Acid 1 cap PO DAILY 05/17/21 12/28/21 History [-U Capsule (formulary)] Allergies Allergy/AdvReac Type Severity Reaction Status Date / Time No Known Allergies Allergy Verified 12/28/21 06:07 Exam Osteopathic Statement: *. No significant issues noted on an osteopathic structural exam other than those noted in the History and Physical/Consult. 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 Results Result Diagrams: 12/28/21 06:30 Abnormal Lab Results - Last 24 Hours (Table) 12/28/21 Range/Units 06:30 WBC 11.5 H (4.0-11.0) k/uL Neutrophils # 8.4 H (1.3-7.7) k/uL Assessment and Plan (1) 39 weeks gestation of Current Visit: Yes Status: Acute Code(s): Z3A.39 - 39 WEEKS GESTATION OF SNOMED Code(s): 37542458 (2) Positive GBS test Current Visit: Yes Status: Acute Code(s): B95.1 - STREPTOCOCCUS, GROUP B, CAUSING DISEASES CLASSD [facility] SNOMED Code(s): 488400540 Plan: 21-year-old 1 para 0 at 39-3/7 weeks that presents for elective induction of labor. Patient is admitted to labor and delivery for Pitocin induction. Pitocin is begun per hospital protocol. Options for analgesia are discussed with patient including Stadol and epidural. Patient will consider. Amniotomy was performed on exam this morning clear fluid was obtained. IV antibiotics were begun secondary to positive GBS rectovaginal culture. Anticipate spontaneous vaginal delivery.
[2021-12-28] MEDS ORDERED: BUTORPHANOL 1 MG/ML 1 ML VIAL IV PRN (09:10)
[2021-12-28] MEDS: AMPICILLIN 1,000 MG in SODIUM CHLORIDE 0.9% 50 ML IVPB SCH ×3 (11:04→18:54)
[2021-12-28] MEDS ORDERED: ROPIVACAINE 100 MG, fentaNYL (PF). 200 MCG in SODIUM CHLORIDE 0.9% 76 ML EPIDURAL ONE (16:58)
[2021-12-28] MEDS ORDERED: SIMETHICONE 80 MG CHEWABLE PO PRN (21:08)
[2021-12-28] MEDS ORDERED: diphenhydrAMINE 25 MG CAP PO PRN (21:08)
[2021-12-28] MEDS ORDERED: ZOLPIDEM 5 MG TAB PO PRN (21:08)
[2021-12-28] MEDS ORDERED: LANOLIN CREAM 5 GM TUBE TOPICAL PRN (21:08)
[2021-12-28] MEDS ORDERED: diphenhydrAMINE 50 MG/ML 1 ML VIAL IVP PRN ×2 (21:08)
[2021-12-28] MEDS ORDERED: BENZOCAINE/MENTHOL SPRAY 1 GM/SPRAY AEROSOL TOPICAL PRN (21:08)
[2021-12-28] MEDS ORDERED: diphenhydrAMINE 50 MG CAP PO PRN (21:08)
[2021-12-28] MEDS ORDERED: HYDROCORTISONE 2.5% RECTAL CREAM 30 GM TUBE RECTAL PRN (21:08)
--- NOTE | 2021-12-28 21:12 | P.PROBDLV ---
Vaginal Delivery Note - . Vaginal Delivery Note: Findings: Viable female delivered at 2037, weight of 7 lbs. 7 oz., Apgars of 9 and 9 at one and 5 minutes respectively. Right labial laceration appreciated during delivery, repaired with 4-0 chromic. This is a 21-year-old 1 para 0 at 39-3/7 weeks that presented to labor and delivery this morning for elective induction of labor. Patient had been receiving routine care which essentially uncomplicated despite hyperemesis in the first trimester. Patient was admitted to labor and delivery and Pitocin induction of labor was begun. Patient underwent amniotomy and clear fluid was obtained. Patient progressed through labor eventually becoming uncomfortable and receiving an epidural. Epidural was placed without difficulty by the anesthesia department. Patient progressed slowly through labor, progressed to complete. Patient began pushing. When the patient pushed the infant's head to a crown she was placed in a modified lithotomy position draped in a sterile fashion with excellent maternal effort the head along with the anterior/posterior shoulder with a compound right hand was delivered and the infant was placed on the maternal abdomen. A two-minute delayed the umbilical cord was doubly clamped and cut. Cord blood was then taken. Spontaneous cry was noted at . The placenta was then delivered spontaneously intact with three-vessel cord being noted. On inspection the patient's vaginal vault a right labial laceration was appreciated this was repaired in the usual fashion with 4-0 chromic after instillation of lidocaine. Uterus is noted to be firm and below the umbilicus. On inspection the patient's vaginal laceration hemostasis was appreciated. All counts were noted be correct 2 at the end of the delivery. Estimated blood loss 150 mL's. Patient and infant tolerated delivery well and are resting comfortably.
[2021-12-28 21:13] VITALS: RESP 16
[2021-12-28] MEDS ORDERED: OXYTOCIN 30 UNITS/500 ML NS 30 UNIT in SALINE 1 500ML.BAG IV SCH (21:15)
[2021-12-28] MEDS: IBUPROFEN 600 MG TAB PO SCH (23:09)
[2021-12-29] MEDS: AMPICILLIN 1,000 MG in SODIUM CHLORIDE 0.9% 50 ML IVPB SCH (00:14)
[2021-12-29] MEDS: IBUPROFEN 600 MG TAB PO SCH ×4 (04:12→19:42)
[2021-12-29] MEDS: ACETAMINOPHEN TAB 325 MG TAB PO PRN ×2 (06:15→17:15)
--- NOTE | 2021-12-29 08:07 | P.PNOBGVD ---
Subjective - Subjective Principal diagnosis: Postop day 1, spontaneous vaginal delivery Interval history: Patient is doing well . She is ambulating and voiding without difficulty. She is noting some low back pain. She is breast-feeding without difficulty. Patient reports: Reports appetite normal, Reports voiding normally, Reports pain well controlled, Reports ambulating normally : doing well, nursing well Objective - Latest Vital Signs Latest vital signs: Vital Signs Temp Pulse Resp BP Pulse Ox 12/29/21 04:00 98.1 F 101 H 16 119/86 12/28/21 22:57 99.2 F 93 16 123/70 97 12/28/21 22:27 99.0 F 107 H 16 115/59 97 12/28/21 21:55 100.2 F H 101 H 16 117/56 12/28/21 21:39 100.7 F H 102 H 16 115/58 96 12/28/21 21:26 100.1 F H 101 H 16 119/60 98 12/28/21 21:10 100.4 F H 102 H 16 135/68 97 12/28/21 20:57 100.9 F H 106 H 18 131/99 98 Intake and Output 12/28/21 12/29/21 12/29/21 22:59 06:59 14:59 Intake Total 94.833 Output Total 279 Balance -184.167 Intake: Intake, IV Titration 94.833 Amount Oxytocin 30 Units/500 ml 94.833 Ns 30 unit In Saline 1 500ml.bag @ Per Protocol IV .Q0M [facility] Rx#:[id number] Output: Estimated Blood Loss 150 Output, Quantitative 129 Blood Loss - Exam Extremities: Present: normal, edema Abdomen: Present: normal appearance Uterus: Present: normal, firm Assessment and Plan (1) 39 weeks gestation of Current Visit: Yes Status: Acute Code(s): Z3A.39 - 39 WEEKS GESTATION OF SNOMED Code(s): 32677707 (2) Positive GBS test Current Visit: Yes Status: Acute Code(s): B95.1 - STREPTOCOCCUS, GROUP B, CAUSING DISEASES CL[facility]SD [facility] SNOMED Code(s): 088747301 (3) Status post vaginal delivery Current Visit: Yes Status: Acute Code(s): YAI9889 - SNOMED Code(s): 736974797 (4) Obstetric labial laceration, delivered, current hospitalization Current Visit: Yes Status: Acute Code(s): O70.0 - FIRST DEGREE PERINEAL LACERATION DURING DELIVERY SNOMED Code(s): 095392062 Plan: 21-year-old G1 now P1 status post normal spontaneous vaginal delivery. Patient is doing well. We'll plan to continue routine postoperative care and anticipate discharge home tomorrow.
[2021-12-29] MEDS: SENNOSIDES-DOCUSATE SODIUM 1 EACH TAB PO SCH ×2 (10:48→19:43)
[2021-12-29] MEDS: PRENATAL VIT-IRON-FOLIC ACID 1 EACH CAP PO SCH (12:31)
[2021-12-30] MEDS: IBUPROFEN 600 MG TAB PO SCH ×2 (05:56→06:49)
[2021-12-30 07:51] VITALS: BP 117/81; PULSE 98; TEMP 97.5
[2021-12-30] MEDS: PRENATAL VIT-IRON-FOLIC ACID 1 EACH CAP PO SCH (07:52)
[2021-12-30] MEDS: SENNOSIDES-DOCUSATE SODIUM 1 EACH TAB PO SCH (07:52)
--- NOTE | 2021-12-30 08:57 | P.DS ---
Providers Date of admission: 12/28/21 05:55 Expected date of discharge: 12/30/21 Attending physician: Monica Manley Primary care physician: Stated None - Discharge Diagnosis(es) (1) 39 weeks gestation of Current Visit: Yes Status: Acute (2) Positive GBS test Current Visit: Yes Status: Acute (3) Status post vaginal delivery Current Visit: Yes Status: Acute (4) Obstetric labial laceration, delivered, current hospitalization Current Visit: Yes Status: Acute Hospital Course: This is a 21-year-old 1 now para 1 presented to labor and delivery at 39-3/7 weeks for elective induction of labor. Patient had been receiving routine care which had been essentially compensated despite hyperemesis in the first trimester. Patient was admitted to labor and delivery and Pitocin induction of labor was begun. Patient progressed through labor eventually amniotomy was performed clear fluid was appreciated. Patient did become un comfortable and requested epidural placement. Epidural was placed without difficulty by the anesthesia department. Patient made slow progress to complete she began pushing and had a normal spontaneous vaginal delivery of a viable female infant delivered at 2037, weight of 7 lbs. 7 oz. Patient did sustain a right labial laceration that was repaired in the usual fashion after delivery. Patient's course has been essentially uncomplicated. Patient is struggling with baby blues/depression. Patient admits to having several episodes of crying since delivery. Patient is agreeable to medical treatment. Infant was placed on bili lights last night and she feels that may have increased her depression symptoms. is doing well overall, breast-feeding without difficulty, awaiting a bilirubin level this afternoon. Patient Condition at Discharge: Good Plan - Discharge Summary New Discharge Prescriptions: No Action Spr-Kckl-Clruj Acid [-U Capsule (formulary)] 1 cap PO DAILY Discharge Medication List Qfx-Gtgz-Yhich Acid [-U Capsule (formulary)] 1 cap PO DAILY 05/17/21 [History] Follow up Appointment(s)/Referral(s): Monica Manley DO [Doctor of Osteopathic Medicine] - 2 Weeks Patient Instructions/Handouts: Vaginal Delivery (GEN), Vaginal Delivery (DC), Depression (DC), Depression (GEN) Discharge Disposition: HOME SELF-CARE
[2021-12-30] MEDS ORDERED: SERTRALINE 25 MG TAB PO SCH (09:00)
[2021-12-30] MEDS: ACETAMINOPHEN TAB 325 MG TAB PO PRN (09:45)
== END 2021-12-30 14:30 | disposition home or self-care (01) | DRG 807 ==
LOC: 4FBP 05:55
PROVIDERS: ADMIT Obstetrics & Gynecology Obstetrics; ATTEND Obstetrics & Gynecology Obstetrics
PROC: 10E0XZZ Delivery of Products of Conception, External Approach (ICD-10-PCS; principal; 2021-12-28)
PROC: 0HQ9XZZ Repair Perineum Skin, External Approach (ICD-10-PCS; 2021-12-28)
PROC: 10907ZC Drainage of Amniotic Fluid, Therapeutic from Products of Conception, Via Natural or Artificial Opening (ICD-10-PCS; 2021-12-28)
PROC: 3E033VJ Introduction of Other Hormone into Peripheral Vein, Percutaneous Approach (ICD-10-PCS; 2021-12-28)
DX: O32.6XX0 Maternal care for compound presentation, not applicable or unspecified (principal); Z37.0 Single live birth; O99.824 Streptococcus B carrier state complicating childbirth; O99.62 Diseases of the digestive system complicating childbirth; K21.9 Gastro-esophageal reflux disease without esophagitis; F32.A Depression, unspecified; F41.9 Anxiety disorder, unspecified; O70.0 First degree perineal laceration during delivery; O99.344 Other mental disorders complicating childbirth; Z3A.39 39 weeks gestation of pregnancy; Z87.891 Personal history of nicotine dependence
CPT/HCPCS: 80306; 85025; 86850; 86900; 86901

== ENCOUNTER 2025-01-01 11:40 | Emergency (ER) | payer OTHER ==
--- NOTE | 2025-01-01 12:14 | ED ---
General Adult HPI - General Chief complaint: Psychiatric Symptoms Stated complaint: 30 weeks preg, SI Time Seen by Provider: 01/01/25 11:48 Source: patient, EMS, RN notes reviewed, old records reviewed Mode of arrival: EMS Limitations: no limitations - History of Present Illness Initial comments: Patient is a 24-year-old female who presents emergency department as a transfer from [facility] for abdominal pain in the setting of as well as suicidal ideations with self injuring behavior. Patient is approximately 31 weeks . Has been receiving care with Dr. Manley. States she has been dealing with an argument with her significant other over the past day, continued this morning which is when she began developing the abdominal discomfort. Had some self injuring behavior yesterday. Previously was on psyc hiatric medications however no longer takes them. Also does not currently follow-up with a therapist. Denies any current suicidal ideations or attempts. States she was feeling somewhat that way yesterday. Denies any hallucinations. Denies any suicidal ideations, times, plans. Patient is G2, P1. Denies any significant abdominal pain currently. Denies any vaginal discharge or bleeding. Denies any urinary complaints. Denies chest pain or shortness of breath. Presents for further evaluation at this time. She is requesting ultrasound to evaluate baby. - Related Data Home Medications Medication Instructions Recorded Confirmed Lbd-[id number]-[id number] Acid 1 cap PO DAILY 05/17/21 11/03/24 [-U Capsule (formulary)] Previous Rx's Medication Instructions Recorded Cephalexin [Keflex] 500 mg PO Q12HR 5 Days #10 cap 01/01/25 Allergies Allergy/AdvReac Type Severity Reaction Status Date / Time No Known Allergies Allergy Verified 01/01/25 11:51 Review of Systems ROS Statement: Those systems with pertinent positive or pertinent negative responses have been documented in the HPI. Review of Systems: CONST: Denies fever EYES: Denies blurry vision ENT: Denies nasal congestion C/V: Denies Chest pain RESP: Denies shortness of breath GI: Denies abdominal pain : Denies dysuria SKIN: Denies rash. MSK: Denies joint pain. NEURO: Denies headache ROS Other: All systems not noted in ROS Statement are negative. Past Medical History Past Medical History: No Reported History, GERD/Reflux Additional Past Medical History / Comment(s): nausea History of Any Multi-Drug Resistant Organisms: None Reported Past Surgical History: No Surgical Hx Reported Additional Past Surgical History / Comment(s): wisdom teeth, tubes in ears Past Anesthesia/Blood Transfusion Reactions: No Reported Reaction Past Psychological History: Anxiety, Depression Smoking Status: Never smoker - Past Family History Mother Family Medical History: No Reported History Father Family Medical History: Hypertension General Exam - General Exam Comments Initial Comments: General: Appears in no acute distress. HEAD: Normal with no signs of head trauma. EYES: EOMI ENT: Hearing grossly intact, normal oropharynx. RESPIRATORY: Clear breath sounds bilaterally. No wheezes, rales, or rhonchi. C/V: Regular rate and rhythm. S1 and S2 auscultated, no edema, peripheral pulses 2+ and intact throughout ABD: Gravid uterus. Abdomen otherwise nontender. No guarding. EXT: No obvious deformity. SKIN: Superficial lacerations to the forearms with no obvious acute bleed. These do not require closure at this time. NEURO: Alert and oriented x 4. Limitations: no limitations Course Vital Signs 01/01/25 11:42 Temperature 98.3 F Pulse Rate 78 Respiratory 16 Rate Blood Pressure 123/87 O2 Sat by Pulse 99 Oximetry Medical Decision Making - Medical Decision Making Was pt. sent in by a medical professional or institution (, PA, REGULATORY ASSOCIATE, urgent care, hospital, or half-way...) When possible be specific @ -Transferred from [facility] for psychiatric evaluation and OB evaluation. Did you speak to anyone other than the patient for history (EMS, parent, family, police, friend...)? What history was obtained from this source @ -No Did you review nursing and triage notes (agree or disagree)? Why? @ -I reviewed and agree with nursing and triage notes Were old charts reviewed (outside hosp., previous admission, EMS record, old EKG, old radiological studies, urgent care reports/EKG's, half-way records)? Report findings @ -Reviewed transfer paperwork show it shows patient seems to have been hesitant from being transferred for psychiatric evaluation and OB evaluation. She does have self-injuring behavior as well as suicidal ideations. She does have a history of psychiatric illness. Blood work and urine performed at outside facility shows no obvious acute findings. Differential Diagnosis (chest pain, altered mental status, abdominal pain women, abdominal pain men, vaginal bleeding, weakness, fever, dyspnea, syncope, headache, dizziness, GI bleed, back pain, seizure, CVA, palpatations, mental health, musculoskeletal)? @ -Differential Mental Health Depression, anxiety, bipolar, psychosis, schizophrenia, borderline personality, situational depression, adjustment disorder, behavioral disorder, brain tumor, malingering, substance abuse, encephalopathy, medication reaction, dementia, hypothyroidism, degenerative neurologic disorder, lupus.... This is not meant to be all-inclusive list EKG interpreted by me (3pts min.). @ -None done X-rays interpreted by me (1pt min.). @ -None done CT interpreted by me (1pt min.). @ -None done U/S interpreted by me (1pt. min.). @ -Patient's ultrasound shows a definitive IUP measuring 30 weeks and 5 days with a heart rate within acceptable limits What testing was considered but not performed or refused? (CT, X-rays, U/S, labs)? Why? @ -None What meds were considered but not given or refused? Why? @ -None Did you discuss the management of the patient with other professionals (prof antionals i.e. , PA, REGULATORY ASSOCIATE, lab, RT, psych nurse, social media director, book sewer, teacher, residential care officer, classification case manager)? Give summary @ -Labor and delivery floor contacted and they will come down and do stress testing. Labor and delivery nurse completed NSTs and informed me that they were within acceptable limits.EPS notified the consult. Was smoking cessation discussed for >3mins.? @ -No Was critical care preformed (if so, how long)? @ -No Were there social determinants of health that impacted care today? How? (Homelessness, low income, unemployed, alcoholism, drug addiction, transportation, low edu. Level, literacy, decrease access to med. care, correction, rehab)? @ -No Was there de-escalation of care discussed even if they declined (Discuss DNR or withdrawal of care, Hospice)? DNR status @ -No What co-morbidities impacted this encounter? (DM, HTN, Smoking, COPD, CAD, Cancer, CVA, ARF, Chemo, Hep., AIDS, mental health diagnosis, sleep apnea, morbid obesity)? @ -None Was patient admitted / discharged? Hospital course, mention meds given and route, prescriptions, significant lab abnormalities, going to OR and other pertinent info. @ -Based on patient's presentation and physical exam, presents emergency department for psychiatric evaluation and OB evaluation. Transferred from [facility]. She is currently approximately 12 weeks . Will obtain general labs, type and screen, as well as ultrasound. She had abdominal pain earlier this morning which is since resolved. Will obtain stress testing after contacting labor and delivery floor. Suicide precautions ordered. Sitter ordered. Patient was in agreement this plan. Labor and delivery completed NSTs and were within acceptable limits. Patient's ultrasound shows a definitive IUP measuring 30 weeks and 5 days with a heart rate within acceptable limits. No obvious abnormalities present. Laboratory studies returned remarkable for leukocytosis of 11 which is likely reactive. Slight hypoglycemia likely secondary to not eating today and was given food which she ate. Urinalysis shows asymptomatic bacteriuria. I discussed results with the patient. We will initiate her on antibiotics for the asymptomatic bacteria. Otherwise patient is medically cleared for evaluation by psychiatry at this time. EPS notified the consult. Disposition pending psychiatric evaluation. EPS evaluated patient and determined that she does not meet inpatient criteria. I was in agreement this plan. Patient will be discharged home with a safety plan, as well as her prescription for Keflex for asymptomatic bacteriuria. She will follow-up with her PNEUMATIC TESTER MECHANIC. Return if any worsening symptoms. Instructed to follow a safety plan. Undiagnosed new problem with uncertain prognosis? @ -No Drug Therapy requiring intensive monitoring for toxicity (Heparin, Nitro, Insulin, Cardizem)? @ -No Were any procedures done? @ -No Diagnosis/symptom? @ -, asymptomatic bacteriuria, Encounter for psychiatric evaluation, self injuring behavior Acute, or Chronic, or Acute on Chronic? @ -Acute Uncomplicated (without systemic symptoms) or Complicated (systemic symptoms)? @ -Uncomplicated Side effects of treatment? @ -None Exacerbation, Progression, or Severe Exacerbation] @ -No Poses a threat to life or bodily function? @ -Unlikely at this time - Lab Data Result diagrams: 01/01/25 12:12 01/01/25 12:12 Lab Results 01/01/25 01/01/25 01/01/25 Range/Units 11:59 12:05 12:12 WBC 11.3 H (3.8-10.6) k/uL RBC 3.96 (3.80-5.40) m/uL Hgb 12.3 (11.4-16.0) gm/dL Hct 38.2 (34.0-46.0) % MCV 96.4 (80.0-100.0) fL MCH 31.2 (25.0-35.0) pg MCHC 32.3 (31.0-37.0) g/dL RDW 13.0 (11.5-15.5) % Plt Count 239 (150-450) k/uL MPV 7.2 Neutrophils % 77 % Lymphocytes % 18 % Monocytes % 3 % Eosinophils % 0 % Basophils % 0 % Neutrophils # 8.7 H (1.3-7.7) k/uL Lymphocytes # 2.1 (1.0-4.8) k/uL Monocytes # 0.4 (0-1.0) k/uL Eosinophils # 0.0 (0-0.7) k/uL Basophils # 0.0 (0-0.2) k/uL Sodium (137-145) mmol/L Potassium (3.5-5.1) mmol/L Chloride (98-107) mmol/L Carbon Dioxide (22-30) mmol/L Anion Gap mmol/L BUN (7-17) mg/dL Creatinine (0.52-1.04) mg/dL Est GFR (CKD-EPI)AfAm (>60 ml/min/1.73 sqM) Est GFR (CKD-EPI)NonAf (>60 ml/min/1.73 sqM) Glucose (74-99) mg/dL POC Glucose (mg/dL) (70-110) mg/dL POC Glu Legal Practice Manager ID Calcium (8.4-10.2) mg/dL Urine Color Yellow Urine Appearance Cloudy H (Clear) Urine pH 6.0 (5.0-8.0) Ur Specific [place] 1.026 (1.001-1.035) Urine Protein Trace H (Negative) Urine Glucose (UA) Negative (Negative) Urine Ketones 1+ H (Negative) Urine Blood Negative (Negative) Urine Nitrite Negative (Negative) Urine Bilirubin Negative (Negative) Urine Urobilinogen <2.0 (<2.0) mg/dL Ur Leukocyte Esterase Large H (Negative) Urine RBC 4 (0-5) /hpf Urine WBC 15 H (0-5) /hpf Ur Squamous Epith Cells 7 H (0-4) /hpf Urine Bacteria Rare H (None) /hpf Urine Mucus Few H (None) /hpf Urine Opiates Screen Not Detected (NotDetected) Ur Oxycodone Screen Not Detected (NotDetected) Urine Methadone Screen Not Detected (NotDetected) Ur Barbiturates Screen Not Detected (NotDetected) U Tricyclic Antidepress Not Detected (NotDetected) Ur Phencyclidine Scrn Not Detected (NotDetected) Ur Amphetamines Screen Not Detected (NotDetected) U Methamphetamines Scrn Not Detected (NotDetected) U Benzodiazepines Scrn Not Detected (NotDetected) Urine Cocaine Screen Not Detected (NotDetected) U Marijuana (THC) Screen Not Detected (NotDetected) Blood Type O Positive Blood Type Recheck O Pos Bld Type Recheck Status No Antibody Screen NEGATIVE Spec Expiration Date 01/04/2025 - 231101/01/25 01/01/25 Range/Units 12:12 14:18 WBC (3.8-10.6) k/uL RBC (3.80-5.40) m/uL Hgb (11.4-16.0) gm/dL Hct (34.0-46.0) % MCV (80.0-100.0) fL MCH (25.0-35.0) pg MCHC (31.0-37.0) g/dL RDW (11.5-15.5) % Plt Count (150-450) k/uL MPV Neutrophils % % Lymphocytes % % Monocytes % % Eosinophils % % Basophils % % Neutrophils # (1.3-7.7) k/uL Lymphocytes # (1.0-4.8) k/uL Monocytes # (0-1.0) k/uL Eosinophils # (0-0.7) k/uL Basophils # (0-0.2) k/uL Sodium 138 (137-145) mmol/L Potassium 3.9 (3.5-5.1) mmol/L Chloride 107 (98-107) mmol/L Carbon Dioxide 22 (22-30) mmol/L Anion Gap 9 mmol/L BUN 14 (7-17) mg/dL Creatinine 0.47 L (0.52-1.04) mg/dL Est GFR (CKD-EPI)AfAm >90 (>60 ml/min/1.73 sqM) Est GFR (CKD-EPI)NonAf >90 (>60 ml/min/1.73 sqM) Glucose 69 L (74-99) mg/dL POC Glucose (mg/dL) 92 (70-110) mg/dL POC Glu Legal Practice Manager ID Christopher Fisher Calcium 8.6 (8.4-10.2) mg/dL Urine Color Urine Appearance (Clear) Urine pH (5.0-8.0) Ur Specific [place] (1.001-1.035) Urine Protein (Negative) Urine Glucose (UA) (Negative) Urine Ketones (Negative) Urine Blood (Negative) Urine Nitrite (Negative) Urine Bilirubin (Negative) Urine Urobilinogen (<2.0) mg/dL Ur Leukocyte Esterase (Negative) Urine RBC (0-5) /hpf Urine WBC (0-5) /hpf Ur Squamous Epith Cells (0-4) /hpf Urine Bacteria (None) /hpf Urine Mucus (None) /hpf Urine Opiates Screen (NotDetected) Ur Oxycodone Screen (NotDetected) Urine Methadone Screen (NotDetected) Ur Barbiturates Screen (NotDetected) U Tricyclic Antidepress (NotDetected) Ur Phencyclidine Scrn (NotDetected) Ur Amphetamines Screen (NotDetected) U Methamphetamines Scrn (NotDetected) U Benzodiazepines Scrn (NotDetected) Urine Cocaine Screen (NotDetected) U Marijuana (THC) Screen (NotDetected) Blood Type Blood Type Recheck Bld Type Recheck Status Antibody Screen Spec Expiration Date Disposition Clinical Impression: Asymptomatic bacteriuria during , Third trimester , Encounter for psychiatric assessment, Self-injurious behavior Disposition: HOME SELF-CARE Condition: Good Additional Instructions: follow safety plan. follow up with psychiatric services and OBGYN. Prescriptions: Cephalexin [Keflex] 500 mg PO Q12HR 5 Days #10 cap Is patient prescribed a controlled substance at d/c from ED?: No Referrals: None,Stated [REFERRING] - 1-2 days Monica Manley DO [Doctor of Osteopathic Medicine] - 1-2 days Time of Disposition: 14:52
[2025-01-01 12:24] LABS: Appearance,Urine Cloudy (Clear); Bacteria,Urine Rare /hpf; Bilirubin,Urine Negative (Negative); Blood,Urine Negative (Negative); Color,Urine Yellow; Glucose,Urine (UA) Negative (Negative); Ketones,Urine 1+ (Negative); Leukocyte Esterase,Urine Large (Negative); Mucus,Urine Few /hpf; Nitrite,Urine Negative (Negative); Protein,Urine Trace (Negative); RBC,Urine 4 /hpf (0-5); Specific Gravity,Urine 1.026 (1.001-1.035); Squamous Epithelial Cell,Urine 7 /hpf (0-4); Urobilinogen,Urine <2.0 mg/dL (<2.0); WBC,Urine 15 /hpf (0-5)
[2025-01-01 12:28] LABS: Basophils % (A) 0 %; Eosinophils % (A) 0 %; HCT 38.2 % (34.0-46.0); HGB 12.3 gm/dL (11.4-16.0); Lymphocytes # (A) 2.1 k/uL (1.0-4.8); Lymphocytes % (A) 18 %; MCH 31.2 pg (25.0-35.0); MCHC 32.3 g/dL (31.0-37.0); MCV 96.4 fL (80.0-100.0); Mean Platelet Volume 7.2; Monocytes # (A) 0.4 k/uL (0-1.0); Monocytes % (A) 3 %; Neutrophils # (A) 8.7 k/uL (1.3-7.7); Neutrophils % (A) 77 %; Platelet Count 239 k/uL (150-450); RBC 3.96 m/uL (3.80-5.40); WBC 11.3 k/uL (3.8-10.6)
[2025-01-01 12:29] LABS: Amphetamine Screen,Urine Not Detected (NotDetected); Barbiturate Screen,Urine Not Detected (NotDetected); Benzodiazepines Screen,Urine Not Detected (NotDetected); Cocaine Screen,Urine Not Detected (NotDetected); Methadone Screen, Urine Not Detected (NotDetected); Opiate Screen,Urine Not Detected (NotDetected); Oxycodone Screen, Urine Not Detected (NotDetected); Phencyclidine Screen,Urine Not Detected (NotDetected); Tricyclic Antidepressant,Urine Not Detected (NotDetected); Urn Cannabinoid Scrn Not Detected (NotDetected)
[2025-01-01 12:45] LABS: African American GFR (CKD) >90 (>60 ml/min/1.73 sqM); Anion Gap 9 mmol/L; Blood Urea Nitrogen 14 mg/dL (7-17); Calcium 8.6 mg/dL (8.4-10.2); Carbon Dioxide 22 mmol/L (22-30); Chloride 107 mmol/L (98-107); Glucose 69 mg/dL (74-99); Non-African American GFR(CKD) >90 (>60 ml/min/1.73 sqM); Potassium 3.9 mmol/L (3.5-5.1); Sodium 138 mmol/L (137-145)
--- NOTE | 2025-01-01 13:25 | US ---
EXAMINATION TYPE: US OB >= 14 wk fetus DATE OF EXAM: 01/01/2025 COMPARISON: None CLINICAL INDICATION: Female, 24 years old with history of abd pain, 31 w preg; abd pain this AM, no l onger in pain TECHNIQUE: Transabdominal (TA) FINDINGS: GESTATIONAL AGE / DATING Physician Established: (31 weeks/0 days) EDC: 03/05/25 Dates by Current Scan: (30 weeks/5 days) EDC: 03/07/25 Beta HCG (if available): Not available at this time SURVEY IUP: Single PLACENTA: Anterior PREVIA: No Previa LILIBETH: 10 cm Normal CERVICAL LENGTH (transabdominal: norm > 3.0cm): 3.4 cm BIOMETRY PRESENTATION: Vertex LIE: Longitudinal BPD: 8.0 cm 32 weeks / 2 days HC: 28.4 cm 31 weeks / 2 days AC: 25.3 cm 29 weeks / 4 days FL: 5.6 cm 29 weeks / 2 days ESTIMATED WEIGHT IN GRAMS: 1447 grams ESTIMATED WEIGHT IN LBS/OZ: 3 lbs. 3 oz. WEIGHT PERCENTAGE BASED ON ESTABLISHED DATES: 9% HC/AC: 1.12 Normal FL/AC: 22% Normal HEART RATE: 134 bpm RHYTHM: Normal prominent venous vessels noted at right adnex IMPRESSION: 1. Single viable intrauterine as described above. 2. No placental abnormalities. 3. Exam not performed for analysis of anatomy or anomalies. anomalies cannot be exc luded [facility], Workstation: [email or web address] 01/01/2025 1:23 PM
[2025-01-01] MEDS: CEPHALEXIN 500 MG CAP PO STA (14:08)
[2025-01-01 14:19] LABS: Glucose,Whole Blood 92 mg/dL (70-110)
[2025-01-01 15:08] VITALS: BP 114/76; PULSE 68; RESP 18; TEMP 98.4
== END 2025-01-01 15:10 | disposition home or self-care (01) ==
LOC: EC 11:40
DX: O26.893 Other specified pregnancy related conditions, third trimester (principal); O23.93 Unspecified genitourinary tract infection in pregnancy, third trimester; R45.851 Suicidal ideations; Z04.6 Encounter for general psychiatric examination, requested by authority; F53.0 Postpartum depression; Z3A.31 31 weeks gestation of pregnancy
CPT/HCPCS: 36415; 59025; 76805; 80048; 80306; 81001; 82075; 85025; 86850; 86900; 86901; 87086; 99285

== ENCOUNTER 2025-02-24 09:37 | Inpatient (IN) | payer OTHER ==
[2025-02-24] MEDS: LACTATED RINGERS 1,000 ML IV SCH (09:55)
[2025-02-24] MEDS ORDERED: LIDOCAINE 0.5% (PF) 5 MG/ML (50 ML SDV) SQ PRN (10:06)
[2025-02-24] MEDS ORDERED: miSOPROStoL 200 MCG TAB RECTAL PRN (10:06)
[2025-02-24] MEDS ORDERED: METHYLERGONOVINE 0.2 MG/ML 1 ML AMP IM PRN (10:06)
[2025-02-24] MEDS ORDERED: OXYTOCIN 10 UNIT/ML 1 ML VIAL IM PRN (10:06)
[2025-02-24] MEDS ORDERED: TRANEXAMIC 1,000 MG/100ML-NACL 1,000 MG in EMPTY BAG 1 BAG IV PRN (10:06)
[2025-02-24] MEDS ORDERED: miSOPROStoL 200 MCG TAB PO PRN (10:06)
[2025-02-24] MEDS ORDERED: CARBOPROST TROMETHAMINE 250 MCG/ML 1 ML AMP IM PRN (10:06)
[2025-02-24] MEDS ORDERED: TERBUTALINE 1 MG/ML VIAL SQ PRN (10:06)
[2025-02-24] MEDS ORDERED: OXYTOCIN 30 UNITS/500 ML NS 30 UNIT in SALINE 1 500ML.BAG IV SCH (10:15)
[2025-02-24] MEDS: OXYTOCIN 30 UNITS/500 ML NS 30 UNIT in SALINE 1 500ML.BAG IV SCH (10:20)
[2025-02-24] MEDS: AMPICILLIN 2,000 MG in SODIUM CHLORIDE 0.9% 100 ML IVPB STA (10:28)
[2025-02-24 10:40] LABS: Basophils # (A) 0.04 10*3/uL (0.00-0.10); Basophils % (A) 0.4 %; Eosinophils # (A) 0.04 10*3/uL (0.04-0.35); Eosinophils % (A) 0.4 %; HCT 38.2 % (37.2-46.3); HGB 13.8 g/dL (12.0-15.0); Lymphocytes # (A) 2.15 10*3/uL (0.90-5.00); Lymphocytes % (A) 21.2 %; MCH 33.8 pg (27.0-32.0); MCHC 36.1 g/dL (32.0-37.0); MCV 93.6 fL (80.0-97.0); Mean Platelet Volume 9.7 fL (9.5-12.2); Monocytes % (A) 3.9 %; Neutrophils # (A) 7.41 10*3/uL (1.80-7.70); Neutrophils % (A) 72.9 %; Platelet Count 267 10*3/uL (140-440); RBC 4.08 10*6/uL (4.10-5.20); RDW 12.5 % (11.5-14.5); WBC 10.16 10*3/uL (4.50-10.00)
[2025-02-24] MEDS: AMPICILLIN 1,000 MG in SODIUM CHLORIDE 0.9% 50 ML IVPB SCH (14:20)
[2025-02-24] MEDS ORDERED: ROPIVACAINE 5 MG/ML 30 ML VIAL ONE (15:21)
[2025-02-24] MEDS ORDERED: SODIUM CHLORIDE 0.9% 250 ML BAG ONE (15:21)
[2025-02-24] MEDS ORDERED: fentaNYL (PF) 50 MCG/ML 5 ML AMP ONE (15:21)
[2025-02-24] MEDS ORDERED: ZOLPIDEM 5 MG TAB PO PRN (17:32)
[2025-02-24] MEDS ORDERED: diphenhydrAMINE 25 MG CAP PO PRN (17:32)
[2025-02-24] MEDS ORDERED: diphenhydrAMINE 50 MG/ML 1 ML VIAL IVP PRN ×2 (17:32)
[2025-02-24] MEDS ORDERED: SIMETHICONE 80 MG CHEWABLE PO PRN (17:32)
[2025-02-24] MEDS ORDERED: LANOLIN CREAM 1 GM TUBE TOPICAL PRN (17:32)
[2025-02-24] MEDS ORDERED: HYDROCORTISONE 2.5% RECTAL CREAM 30 GM TUBE RECTAL PRN (17:32)
[2025-02-24] MEDS ORDERED: diphenhydrAMINE 50 MG CAP PO PRN (17:32)
--- NOTE | 2025-02-24 17:36 | P.PROBDLV ---
Vaginal Delivery Note - . Vaginal Delivery Note: Date of service 02/24/2025 Findings viable male infant delivered at 1717 weight is pending 24-year-old at 30-5/7 weeks that presented to labor and delivery for medical induction of labor secondary to growth restriction, ultrasound revealing EFW of 8 percentile and an LILIBETH of 5. Patient was admitted to labor and delivery and Pitocin induction of labor was begun. Amniotomy was performed and scant fluid was obtained. Patient progressed through labor becoming uncomfortable and requesting epidural. Epidural was placed without difficulty by the anesthesia department. Patient began pushing and had a normal spontaneous vaginal delivery of a viable male infant at 1717, weight is pending. Compound left hand was appreciated at the time of delivery. After 2-minute delay the umbilical cord was doubly clamped and cut. Spontaneous cry was noted at . Placenta was delivered spontaneously intact with a three-vessel cord being noted. On inspection the patient's vaginal vault periurethral lacerations were noted and found to be hemostatic. Uterus was noted to be firm and below the umbilicus. Estimated blood loss 100 cc All counts remain correct x 2 at the end of delivery Patient and infant tolerated delivery well and are resting comfortably
--- NOTE | 2025-02-24 17:36 | P.HPOB ---
History of Present Illness H&P Date: 02/24/25 Chief Complaint: BP at 38-3/7 weeks, FGR, oligohydramnios This is a 24-year-old G2, P1 at 38-3/7 weeks, EDC of 03/05. Patient presents for induction of labor secondary to intrauterine growth restriction, 8th percentile, oligohydramnios, LILIBETH of 5 noted today. Patient has been receiving routine care which has been uncomplicated until today. Patient does note good movement. Patient denies contractions. She denies loss of fluid or vaginal bleeding. blood work this patient has a blood type of O+, rubella status immune, hepatitis B surface antigen negative, hepatitis C antigen negative, group beta strep culture positive sensitive to ampicillin. Review of Systems Constitutional: Denies chills, Denies fatigue, Denies fever Ears, nose, mouth and throat: Denies headache Cardiovascular: Denies leg edema Respiratory: Denies dyspnea Gastrointestinal: Denies constipation, Denies diarrhea, Denies nausea, Denies vomiting Genitourinary: Reports Past Medical History Past Medical History: No Reported History, GERD/Reflux Additional Past Medical History / Comment(s): nausea History of Any Multi-Drug Resistant Organisms: None Reported Past Surgical History: No Surgical Hx Reported Additional Past Surgical History / Comment(s): wisdom teeth, tubes in ears Past Anesthesia/Blood Transfusion Reactions: No Reported Reaction Past Psychological History: Anxiety, Depression Smoking Status: Never smoker - Past Family History Mother Family Medical History: No Reported History Father Family Medical History: Hypertension Medications and Allergies Home Medications Medication Instructions Recorded Confirmed Type Wyi-Cizn-Npomr Acid 1 cap PO DAILY 05/17/21 11/03/24 History [-U Capsule (formulary)] Cephalexin [Keflex] 500 mg PO Q12HR 5 Days #10 cap 01/01/25 Rx Allergies Allergy/AdvReac Type Severity Reaction Status Date / Time No Known Allergies Allergy Verified 01/01/25 11:51 Exam Osteopathic Statement: *. No significant issues noted on an osteopathic structural exam other than those noted in the History and Physical/Consult. Targeted physical exam is performed and the state in general is a well-nourished well-developed female in no acute distress, breathing is nonlabored, heart has a regular rate and rhythm, abdomen is gravid, on cervical exam she is 3/50/-2 station amniotomy is performed and scant fluid is obtained. heart tones are noted to be category 1 and she is not sean. Assessment and Plan (1) Term Current Visit: Yes Status: Acute Code(s): Z34.90 - ENCNTR FOR SUPRVSN OF NORMAL , UNSP, UNSP TRIMESTER SNOMED Code(s): 05278422 (2) growth restriction Current Visit: Yes Status: Acute Code(s): KOL8606 - SNOMED Code(s): 88505640 (3) Oligohydramnios Current Visit: Yes Status: Acute Code(s): O41.00X0 - OLIGOHYDRAMNIOS, UNSP TRIMESTER, NOT APPLICABLE OR UNSP SNOMED Code(s): 01096719 (4) Positive GBS test Narrative/Plan: Admit to labor and delivery IV antibiotics, ampicillin given positive GBS rectovaginal culture Pitocin induction per protocol Continuous monitoring/toco Clear liquids as tolerated Epidural when appropriate, Nubain if desired prior to epidural. Current Visit: No Status: Acute Code(s): B95.1 - STREPTOCOCCUS, GROUP B, CAUSING DISEASES [facility] SNOMED Code(s): 910785447
[2025-02-24] MEDS: IBUPROFEN 800 MG TAB PO SCH (18:19)
[2025-02-24] MEDS: SENNOSIDES-DOCUSATE SODIUM 1 EACH TAB PO SCH (19:17)
[2025-02-25] MEDS: ACETAMINOPHEN TAB 500 MG TAB PO SCH (03:06)
[2025-02-25 07:06] LABS: Basophils # (A) 0.04 10*3/uL (0.00-0.10); Basophils % (A) 0.3 %; Eosinophils # (A) 0.06 10*3/uL (0.04-0.35); Eosinophils % (A) 0.5 %; HCT 35.1 % (37.2-46.3); HGB 12.3 g/dL (12.0-15.0); Lymphocytes # (A) 2.49 10*3/uL (0.90-5.00); Lymphocytes % (A) 18.8 %; MCH 33.2 pg (27.0-32.0); MCV 94.9 fL (80.0-97.0); Mean Platelet Volume 9.2 fL (9.5-12.2); Monocytes # (A) 0.87 10*3/uL (0.20-1.00); Monocytes % (A) 6.6 %; Neutrophils # (A) 9.67 10*3/uL (1.80-7.70); Neutrophils % (A) 72.7 %; Platelet Count 211 10*3/uL (140-440); RDW 12.5 % (11.5-14.5); WBC 13.27 10*3/uL (4.50-10.00)
[2025-02-25 08:13] VITALS: RESP 15
--- NOTE | 2025-02-25 08:28 | P.DS ---
Providers Date of admission: 02/24/25 09:37 Expected date of discharge: 02/25/25 Attending physician: Monica Manley Primary care physician: Stated None - Discharge Diagnosis(es) (1) Term Current Visit: Yes Status: Acute (2) growth restriction Current Visit: Yes Status: Acute (3) Oligohydramnios Current Visit: Yes Status: Acute (4) Positive GBS test Current Visit: No Status: Acute (5) Status post vaginal delivery Current Visit: No Status: Acute Hospital Course: This is a 24-year-old G2 now P2 that presented to labor and delivery yesterday 02/24 for medical induction of labor secondary to growth restriction, oligohydramnios. Patient was noted to be 38-5/7 weeks at the time of admission. Patient was admitted and Pitocin induction of labor was begun. Patient underwent amniotomy scant fluid was appreciated. Patient progressed through labor becoming uncomfortable and requesting epidural. Epidural was placed without difficulty by the anesthesia department. Patient progressed to complete began pushing and had a normal spontaneous vaginal delivery of a viable male at 1717, weight of 3155 g, 6 pounds 10 ounces. Apgars of 9 and 9 at 1 and 5 minutes respectively. No vaginal lacerations were appreciated after delivery. Patient has done well appearing is day #1 she is ambulating and voiding without difficulty. She is tolerating a regular diet, and denies nausea and vomiting. Her lochia is noted to be minimal. She is breast-feeding. She does note slight low back pain with breast-feeding. Ibuprofen discussed for cramping/back pain . Patient Condition at Discharge: Good Plan - Discharge Summary New Discharge Prescriptions: No Action Mts-Rhwt-Bskea Acid [-U Capsule (formulary)] 1 cap PO DAILY Discharge Medication List Eal-Aqcr-Rdcxv Acid [-U Capsule (formulary)] 1 cap PO DAILY 05/17/21 [History] Follow up Appointment(s)/Referral(s): Monica Manley DO [Doctor of Osteopathic Medicine] - 6 Weeks Patient Instructions/Handouts: Vaginal Delivery (GEN), Vaginal Delivery (DC) Activity/Diet/Wound Care/Special Instructions: No tub baths or intercourse until 6 weeks . Jzaw-[id number]-zvzzagw ibuprofen 600 mg or 3 tablets every 6 hours as needed for pain. Routine check at 6 weeks, should she have any concerns prior to this appointment she is urged to call the office and be seen prior Discharge Disposition: HOME SELF-CARE
[2025-02-25 18:45] VITALS: BP 105/68; PULSE 68; TEMP 98
== END 2025-02-25 18:29 | disposition home or self-care (01) | DRG 560 ==
LOC: 4FBP 09:37
PROVIDERS: ADMIT Obstetrics & Gynecology Obstetrics; ATTEND Obstetrics & Gynecology Obstetrics
PROC: 10907ZC Drainage of Amniotic Fluid, Therapeutic from Products of Conception, Via Natural or Artificial Opening (ICD-10-PCS; principal; 2025-02-24)
PROC: 3E033VJ Introduction of Other Hormone into Peripheral Vein, Percutaneous Approach (ICD-10-PCS; principal; 2025-02-24)
PROC: 10E0XZZ Delivery of Products of Conception, External Approach (ICD-10-PCS; principal; 2025-02-24)
DX: O36.5930 Maternal care for other known or suspected poor fetal growth, third trimester, not applicable or unspecified (principal); O41.03X0 Oligohydramnios, third trimester, not applicable or unspecified; O71.82 Other specified trauma to perineum and vulva; O99.824 Streptococcus B carrier state complicating childbirth; Z37.0 Single live birth; Z3A.38 38 weeks gestation of pregnancy
CPT/HCPCS: 85025; 86850; 86900; 86901